=== PATIENT | female | born 1965 | race Caucasian/White ===

== ENCOUNTER 2020-02-26 09:07 | Day surgery (SDC) | payer MEDICARE, MEDICAID, SELFPAY ==
[2020-02-26] VITALS (7 sets, daily range): BP systolic 102–143; BP diastolic 40–70; PULSE 51–56; RESP 17–18; TEMP 36.1–36.2; O2SAT 95–97; BMI 29.1
--- NOTE | 2020-02-26 12:40 | HMH.ANESCL ---
[facility] Anesthesia Checklist - Patient Identification Patient Identification: Arm Band, Verbal (Name & ) - Structural Data Admitted From: Home Planned Operative Procedure/s: colon Consent for Planned Operative Procedure(s) Verified: Yes Verified Documents: History and Physical - NPO Status Verified Time NPO: 00:00 - Chart Verification Results Verified: CBC - Additional verifications Patient : No Anesthesia Reactions: No Hx Blood Transfusions: No Blood Transfusion Reaction: No Cephalosporin Allergy: No Previous Colonoscopy: No - Cardiovascular Assessment Heart Sounds: S1 & S2 Pulse Strength: Baseline Pulse Rhythm: Regular Peripheral Edema: No - Airway Assessment C-Spine Mobility Assessed: Yes TMJ Mobility Assessed: Yes Dentition: Edentulous - Neurological Assessment Level of Consciousness: Awake, Alert, Appropriate Hx Seizures: No Numbness or tingling in extremities: No - Anesthesia Plan Anesthesia Risk discussed: Yes Anesthesia Plan: Verified ASA Class: III Anesthesia Type: MAC [facility] History I have reviewed the patient's past medical history: Yes Medical History: Reports:: Anxiety, Depression, Gastroesophageal Reflux Disease(GERD), Hyperlipidemia, Hypertension, Seizures Denies:: Cancer, Diabetes Mellitus Type 1, Diabetes Mellitus Type 2, Internal Pacemaker, MRSA *Have you ever received a pneumonia vaccine?: Yes *Have you received a flu vaccine this season?: Yes Other Medical History: Reports: Thyroid Disease Anesthesia experience/problems:: none Other Surgeries: No: Pacemaker Amputation: No - *Social History Last grade of school completed: High school graduate Smoking Status: Current every day smoker Tobacco Type: cigarettes # Packs/Day (cigarettes): 1 Alcohol Intake: never Substance Use Type: other *Occupational Status:: disabled Housing: [facility] Household Members: caregiver, other *Travel in the last 8 weeks: None - Psychiatric History Pschychiatric History:: Reports:: Anxiety, Depression Family Hx:: Unable to obtain
--- NOTE | 2020-02-26 12:53 | SUR.OPER ---
IV IN LFA NOT PATENT, DISCONTINIUED IV. RESTARTED#22 IN R FA. IV PATENT, WITHOUT REDNESS, SWELLING.
--- NOTE | 2020-02-26 13:47 | HMH.SCOPE ---
- Procedure: Date: 02/26/20 Patient Date of :: 1965 Procedure Performed:: Colonoscopy with polypectomy Indications:: Bleeding hemorrhoids Performing Provider:: David Rucker MD Referring Provider:: . Sedation:: Monitored anesthesia care Procedure:: After informed consent was obtained the patient was taken to the endoscopy suite. Sedation ensued after the patient was transferred to the left lateral decubitus position. Pulse, blood pressure, and oxygen saturation were monitored throughout the procedure. Digital rectal exam revealed no significant abnormality. The colonoscope was placed in position. The entire colon was evaluated. The colonoscope was carefully removed and the patient was transferred to recovery in stable condition. Please see findings and specimens below for detail. Findings:: Large external hemorrhoidal tag/cushions with no thrombosis or bleeding Less prominent internal hemorrhoidal cushions Bowel preparation very poor Polyps (see specimens) Specimens:: Adjacent polyps at 25 cm (snare) Complex polyp at 7 cm (snare) Recommendations:: Timing of repeat colonoscopy is pending pathology but will likely be between 3-6 months secondary to limited bowel preparation and polyps. Ongoing discussion with regard to hemorrhoids treatment. Complications:: Poor bowel preparation Estimated blood obtained (mL): 1
== END 2020-02-26 14:30 | disposition home or self-care (01) ==
LOC: OUTP 09:09
PROVIDERS: PCP Internal Medicine Adolescent Medicine; Visit Provider Surgery
PROC: 0DJD8ZZ Inspection of Lower Intestinal Tract, Via Natural or Artificial Opening Endoscopic (ICD-10-PCS; CPT 45378; principal; 2020-02-26 10:30)
DX: K63.5 Polyp of colon (principal); Z12.11 Encounter for screening for malignant neoplasm of colon; K64.9 Unspecified hemorrhoids; K21.9 Gastro-esophageal reflux disease without esophagitis; I10 Essential (primary) hypertension; E78.5 Hyperlipidemia, unspecified; F41.9 Anxiety disorder, unspecified; F32.9 Major depressive disorder, single episode, unspecified; E07.9 Disorder of thyroid, unspecified; R56.9 Unspecified convulsions; Z72.0 Tobacco use; Z79.899 Other long term (current) drug therapy
CPT/HCPCS: 45385; 88305; J2704

== ENCOUNTER → 2020-04-15 21:07 | Outpatient (CLI) | payer MEDICARE, MEDICAID, SELFPAY ==
[2020-04-15 21:14] LABS: Microscopic, Urine URINE MICROSCOPIC (MICROSCOPIC)
[2020-04-15 21:24] LABS: Basophils % 0.3 % (0.1-2.0); Eosinophils % 0.1 % (0.1-12.0); Hematocrit 39.6 % (37.0-47.0); Lymphocytes # 0.4 K/mm3 (0.7-4.5); Lymphocytes % 4.3 % (10-50); Mean Corpuscular HGB Conc 32.7 g/dL (31.8-35.4); Mean Corpuscular Volume 94.7 fl (81-99); Mean Platelet Volume 7.6 fl (7.4-10.4); Monocytes # 0.1 K/mm3 (0.1-1.0); Monocytes % 1.2 % (1.7-9.3); Neutrophils # 8.1 K/mm3 (1.8-7.8); Neutrophils % 93.9 % (37.0-80.0); Platelet Count 262 K/mm3 (142-424); Red Blood Count 4.18 M/mm3 (4.20-5.40); Red Cell Distribution Width 13.4 % (11.5-17.5); White Blood Count 8.6 K/mm3 (4.8-10.8)
[2020-04-15 21:25] LABS: Chloride 110 mmol/L (98-107)
[2020-04-15 21:26] LABS: Potassium 4.1 mmoL/L (3.5-5.1); Sodium 144 mmol/L (136-145)
[2020-04-15 21:28] LABS: Alanine Aminotransferase 37 U/L (12-78); Alkaline Phosphatase 184 U/L (38-126); Amylase 38 U/L (30-110); Anion Gap 13.1 mEq/L (5-15); Appearance,Urine TURBID (Clear); Aspartate Amino Transferase 61 U/L (14-36); Bilirubin,Total 1.7 mg/dl (0.2-1.3); Blood Urea Nitrogen 21 mg/dl (7-17); Blood, Urine 3+ (Negative); Carbon Dioxide 25 mmol/L (22.0-30.0); Color,Urine BROWN (Yellow); Estimated Glomerular Filt Rate 46 ml/min (>60); GFR (African American) 56 ML/MIN (>60); Glucose,Urine (UA) Negative (Negative); Ketones,Urine TRACE (Negative); Leukocyte Esterase,Urine 2+ (Negative); Nitrate,Urine POSITIVE (Negative); PH,Urine 7.5 (5.0-8.5); Protein,Urine 2+ (Negative)
[2020-04-15 21:29] LABS: Albumin Level 3.9 g/dl (3.5-5.0); Bilirubin,Urine Negative (Negative); Calcium 9.7 mg/dl (8.4-10.2); Glucose 122 mg/dl (74-100); Lipase 29 U/L (23-300); Total Protein,Serum 7.9 g/dl (6.3-8.2)
[2020-04-15 21:30] LABS: MANUAL DIFFERENTIAL MANUAL DIFFERENTIAL (MANUAL DIFF)
[2020-04-15 22:11] LABS: Amorphous Sediment,Urine 2+ /lpf; Bacteria,Urine 4+ /lpf; Mucus,Urine 2+ /lpf
[2020-04-15 22:40] LABS: Lymphocytes % 8 % (10-50); Neutrophils % 92 % (42-76); Platelet Estimate Normal; Total Cells Counted 100
[2020-04-15 22:41] LABS: Stomatocytes 1+
== END ==
PROVIDERS: Visit Provider Nurse Practitioner Family
DX: R11.10 Vomiting, unspecified (principal)
CPT/HCPCS: 80053; 81001; 82150; 83690; 85007; 85025; 87086; 87088; 87186

== ENCOUNTER → 2020-06-21 20:46 | Outpatient (CLI) | payer MEDICARE, MEDICAID, SELFPAY ==
[2020-06-21 21:58] LABS: Coronavirus 19 IgG Antibody Positive (Negative); Coronavirus 19 IgM Antibody Negative (Negative)
== END ==
PROVIDERS: Visit Provider Nurse Practitioner Family
DX: Z01.818 Encounter for other preprocedural examination (principal); Z20.822 Contact with and (suspected) exposure to COVID-19; Z12.11 Encounter for screening for malignant neoplasm of colon; Z86.010 Personal history of colon polyps
CPT/HCPCS: 86328

== ENCOUNTER 2020-06-24 06:46 | Day surgery (SDC) | payer MEDICARE, MEDICAID, SELFPAY ==
[2020-06-24 07:12] VITALS: BP 99/64; PULSE 62; RESP 18; TEMP 36.4; O2SAT 100; BMI 28.5
[2020-06-24 08:51] VITALS: O2SAT 100
[2020-06-24 09:47] VITALS: BP 103/64; PULSE 79; RESP 18; TEMP 36.6; O2SAT 94
--- NOTE | 2020-06-24 09:48 | FL_ITS ---
PROCEDURE: FL BARIUM ENEMA W AIR CONTRAST CLINICAL INDICATION: severe sigmoid spasticity/lack of relaxation on colonoscopy COMPARISON: CT HDW CT HEAD W/ CONTRAST from 10/18/2015 FINDINGS: Store Detective image demonstrates staghorn calculus in the right kidney and multiple gallstones. There is a tubing noted coiled within the pelvis. This may represent known ventriculoperitoneal shunt tubing. Slightly limited study due to patient's mobility and inability to cooperate. Normal distention of the rectosigmoid colon is noted. Normal distention of the rectosigmoid, descending and distal transverse colon is noted. No evidence of focal lesions or focal filling defects are noted in the visualized colon. Under distension of the proximal transverse, ascending colon and cecum on introduction of air. No focal abnormalities are noted within the limitations of the study. Reflux of barium into the small bowel and appendix is noted. IMPRESSION: Slightly limited study due to patient's mobility and inability to cooperate during the examination. No evidence of focal narrowing or strictures noted within the limitations of the study. Dictated by: Judit Beaulieu 06/24/2020 16:52 Judit Beaulieu in OV 06/24/2020 16:52
--- NOTE | 2020-06-24 09:49 | HMH.SCOPE ---
- Procedure: Date: 06/24/20 Patient Date of :: 1965 Procedure Performed:: Colonoscopy Indications:: History of polyps Poor prep and severe spasticity/lack of relaxation noted on recent colonoscopy Performing Provider:: David Rucker MD Referring Provider:: . Sedation:: Monitored anesthesia care Procedure:: After informed consent was obtained the patient was taken to the endoscopy suite. Sedation ensued after the patient was transferred to the left lateral decubitus position. Pulse, blood pressure, and oxygen saturation were monitored throughout the procedure. Digital rectal exam revealed no significant abnormality. The colonoscope was placed in position. The entire colon was evaluated. The colonoscope was carefully removed and the patient was transferred to recovery in stable condition. Please see findings and specimens below for detail. Findings:: Moderate to poor bowel preparation (significant improvement versus prior evaluation) Severe sigmoid spasticity and lack of relaxation Large complex circumferential hemorrhoidal cushions with no active bleeding or current thrombosis Specimens:: None Recommendations:: Barium enema ordered secondary to severe spasticity and lack of relaxation of the sigmoid colon. If barium enema reveals no significant abnormality a repeat colonoscopy in 1-2 years is warranted secondary to ongoing limitations in visualization on 2 separate colonoscopies. Complications:: Limited visualization as stated above Estimated blood obtained (mL): 0
--- NOTE | 2020-06-24 09:50 | SUR.PHASEII ---
DR CHOWDARY WANTS PT TO HAVE A BARIUM ENEMA. RADIOLOGY TO CALL WITH TIME. PT KEEPS ALLING OUT HELP ME BUT WHEN GO IN ROOM, DENIES NEEDING ANYTHING. REPOSITIONED PT, VSS.
[2020-06-24 09:57] VITALS: BP 124/72; PULSE 79; RESP 18; O2SAT 94
[2020-06-24 10:08] VITALS: BP 106/61; PULSE 78; RESP 18; O2SAT 95
--- NOTE | 2020-06-24 10:33 | SUR.PHASEII ---
ANI FROM RADIOLOGY CALLED TO LET US KNOW PT IS REFUSING TO ALLOW THEM TO DO BARIUM ENEMA. UPDATED DR CHOWDARY.
[2020-06-24 12:00] VITALS: BP 137/65; PULSE 68; RESP 18; O2SAT 93
--- NOTE | 2020-06-24 12:00 | SUR.PHASEII ---
Report called to [place] nurse Yun.
--- NOTE | 2020-06-24 13:49 | HMH.ANESCL ---
[facility] Anesthesia Checklist - Patient Identification Patient Identification: Arm Band - Structural Data Admitted From: Home Planned Operative Procedure/s: Colonoscopy Consent for Planned Operative Procedure(s) Verified: Yes Verified Documents: Surgical Consent - NPO Status Verified Time NPO: 00:00 - Additional verifications Anesthesia Reactions: No Hx Blood Transfusions: No Blood Transfusion Reaction: No - Airway Assessment C-Spine Mobility Assessed: Yes TMJ Mobility Assessed: Yes Dentition: Poor Dentition - Neurological Assessment Level of Consciousness: Awake, Alert Hx Seizures: Yes (controlled with dilantin) - Anesthesia Plan Anesthesia Risk discussed: Yes Anesthesia Plan: Verified ASA Class: III Anesthesia Type: MAC [facility] History Medical History: Reports:: Anxiety, Depression, Gastroesophageal Reflux Disease(GERD), Hyperlipidemia, Hypertension Denies:: Cancer, Diabetes Mellitus Type 1, Diabetes Mellitus Type 2, Internal Pacemaker, MRSA, Seizures *Have you ever received a pneumonia vaccine?: Yes *Have you received a flu vaccine this season?: Yes Other Medical History: Reports: Thyroid Disease. Denies: Blood Transfusion Reaction Anesthesia experience/problems:: none Other Surgeries: Yes: Colonoscopy. No: Pacemaker Amputation: No - *Social History Smoking Status: Current every day smoker Tobacco Type: e-cigarettes # Packs/Day (cigarettes): 1 Alcohol Intake: never Substance Use Type: other *Occupational Status:: disabled Housing: assisted living facility Household Members: caregiver, other *Travel in the last 8 weeks: None - Psychiatric History Pschychiatric History:: Reports:: Anxiety, Depression Family Hx:: Unable to obtain
== END 2020-06-24 12:02 | disposition home or self-care (01) ==
LOC: OUTP 06:49
PROVIDERS: PCP Internal Medicine Adolescent Medicine; Visit Provider Surgery
PROC: 0DJD8ZZ Inspection of Lower Intestinal Tract, Via Natural or Artificial Opening Endoscopic (ICD-10-PCS; CPT 45378; principal; 2020-06-24 08:30)
DX: K58.9 Irritable bowel syndrome, unspecified (principal); K64.9 Unspecified hemorrhoids; Z86.010 Personal history of colon polyps; I10 Essential (primary) hypertension; E78.5 Hyperlipidemia, unspecified; F41.9 Anxiety disorder, unspecified; F32.9 Major depressive disorder, single episode, unspecified; K21.9 Gastro-esophageal reflux disease without esophagitis; E07.9 Disorder of thyroid, unspecified; Z79.899 Other long term (current) drug therapy; Z72.0 Tobacco use
CPT/HCPCS: 45378; 74280

== ENCOUNTER → 2020-12-29 20:36 | Outpatient (CLI) | payer MEDICARE, MEDICAID, SELFPAY ==
[2020-12-29 20:56] LABS: Microscopic, Urine URINE MICROSCOPIC (MICROSCOPIC)
[2020-12-29 21:06] LABS: Appearance,Urine CLOUDY (Clear); Bilirubin,Urine Negative (Negative); Blood, Urine 3+ (Negative); Color,Urine YELLOW (Yellow); Glucose,Urine (UA) Negative (Negative); Ketones,Urine Negative (Negative); Leukocyte Esterase,Urine 2+ (Negative); Nitrate,Urine Negative (Negative); PH,Urine 7.5 (5.0-8.5); Protein,Urine 2+ (Negative); Specific Gravity, Urine 1.025 (1.005-1.030); Urobilinogen,Urine 0.2 EU/dl (0.2)
[2020-12-29 21:27] LABS: Bacteria,Urine 4+ /lpf; RBC,Urine TNTC #/hpf (0-3); Squamous Epithelial Cell,Urine Occasional #/hpf (0-5); WBC,Urine TNTC #/hpf (0-3)
== END ==
LOC: LAB.DROPOF 20:39
PROVIDERS: PCP Internal Medicine Adolescent Medicine; Visit Provider Internal Medicine Adolescent Medicine
DX: N39.0 Urinary tract infection, site not specified (principal); B96.20 Unspecified Escherichia coli [E. coli] as the cause of diseases classified elsewhere; R30.9 Painful micturition, unspecified; R82.998 Other abnormal findings in urine
CPT/HCPCS: 81001; 87086; 87088; 87186

== ENCOUNTER → 2022-03-23 17:58 | Outpatient (CLI) | payer MEDICARE, MEDICAID, SELFPAY ==
[2022-03-23 18:16] LABS: Microscopic, Urine URINE MICROSCOPIC (MICROSCOPIC)
[2022-03-23 18:35] LABS: Appearance,Urine CLEAR (Clear); Blood, Urine 3+ (Negative); Color,Urine YELLOW (Yellow); Glucose,Urine (UA) Negative (Negative); Ketones,Urine Negative (Negative); Leukocyte Esterase,Urine 2+ (Negative); Nitrate,Urine Negative (Negative); Protein,Urine 2+ (Negative); Specific Gravity, Urine 1.025 (1.005-1.030); Urobilinogen,Urine 0.2 EU/dl (0.2)
[2022-03-23 18:44] LABS: Bilirubin,Urine 1+ (Negative)
[2022-03-23 19:33] LABS: Bacteria,Urine 1+ /lpf; WBC,Urine 20-50 #/hpf (0-3)
== END ==
PROVIDERS: PCP Nurse Practitioner Family; Visit Provider Nurse Practitioner Family
DX: R30.0 Dysuria (principal); B96.4 Proteus (mirabilis) (morganii) as the cause of diseases classified elsewhere; B96.29 Other Escherichia coli [E. coli] as the cause of diseases classified elsewhere
CPT/HCPCS: 81001; 87086; 87088; 87186

== ENCOUNTER → 2022-04-03 09:47 | Outpatient (CLI) | payer MEDICARE, MEDICAID, SELFPAY ==
[2022-04-03 10:44] LABS: Alanine Aminotransferase 16 U/L (12-78); Albumin Level 4.2 g/dl (3.5-5.0); Albumin/Globulin Ratio 1.2 (1.1-1.8); Alkaline Phosphatase 181 U/L (38-126); Anion Gap 11.3 mEq/L (5-15); Aspartate Amino Transferase 27 U/L (14-36); Bilirubin,Total 0.4 mg/dl (0.2-1.3); Blood Urea Nitrogen 16 mg/dl (7-17); Calcium 8.8 mg/dl (8.4-10.2); Carbon Dioxide 26 mmol/L (22.0-30.0); Chloride 111 mmol/L (98-107); Estimated Glomerular Filt Rate 64 ml/min (>60); GFR (African American) 78 ML/MIN (>60); Globulin 3.6 g/dL (1.3-3.2); Glucose 120 mg/dl (74-100); Phenytoin (Dilantin) 11.7 ug/ml (10-20); Potassium 4.3 mmoL/L (3.5-5.1); Sodium 144 mmol/L (136-145); Total Protein,Serum 7.8 g/dl (6.3-8.2)
== END ==
PROVIDERS: PCP Internal Medicine Adolescent Medicine; Visit Provider Internal Medicine Adolescent Medicine
DX: R41.82 Altered mental status, unspecified (principal); R56.9 Unspecified convulsions
CPT/HCPCS: 80053; 80185

== ENCOUNTER → 2022-10-12 12:38 | Outpatient (CLI) | payer MEDICARE, MEDICAID, SELFPAY ==
[2022-10-12 14:12] LABS: Alanine Aminotransferase 17 U/L (12-78); Albumin Level 3.9 g/dl (3.5-5.0); Albumin/Globulin Ratio 1.2 (1.1-1.8); Alkaline Phosphatase 164 U/L (38-126); Aspartate Amino Transferase 25 U/L (14-36); Bilirubin,Total 0.2 mg/dl (0.2-1.3); Blood Urea Nitrogen 18 mg/dl (7-17); Calcium 8.9 mg/dl (8.4-10.2); Carbon Dioxide 26 mmol/L (22.0-30.0); Chloride 111 mmol/L (98-107); Estimated Glomerular Filt Rate 74 ml/min (>60); GFR (African American) 89 ML/MIN (>60); Globulin 3.2 g/dL (1.3-3.2); Glucose 113 mg/dl (74-100); Sodium 144 mmol/L (136-145); Total Protein,Serum 7.1 g/dl (6.3-8.2)
[2022-10-12 16:26] LABS: Basophils % 0.6 % (0.1-2.0); Eosinophils # 0.3 K/mm3 (0.0-0.4); Hematocrit 39.5 % (37.0-47.0); Hemoglobin 12.3 g/dL (12.2-16.2); Lymphocytes # 2.1 K/mm3 (0.7-4.5); Lymphocytes % 36.4 % (10-50); Mean Corpuscular HGB Conc 31.1 g/dL (31.8-35.4); Mean Corpuscular Hemoglobin 29.9 pg (27.0-31.2); Mean Corpuscular Volume 95.9 fl (81-99); Mean Platelet Volume 7.9 fl (7.4-10.4); Monocytes # 0.4 K/mm3 (0.1-1.0); Monocytes % 6.5 % (1.7-9.3); Neutrophils # 2.9 K/mm3 (1.8-7.8); Neutrophils % 51.5 % (37.0-80.0); Platelet Count 376 K/mm3 (142-424); Red Blood Count 4.12 M/mm3 (4.20-5.40); White Blood Count 5.7 K/mm3 (4.8-10.8)
== END ==
PROVIDERS: PCP Internal Medicine Adolescent Medicine; Visit Provider Internal Medicine Adolescent Medicine
DX: G40.89 Other seizures (principal)
CPT/HCPCS: 80053; 80177; 80185; 85025

== ENCOUNTER 2022-10-17 06:35 | Day surgery (SDC) | payer MEDICARE, MEDICAID, SELFPAY ==
[2022-10-13 15:58] VITALS: BMI 26.2
[2022-10-17 06:56] VITALS: BP 140/77; PULSE 65; RESP 18; TEMP 36.7; O2SAT 97
--- NOTE | 2022-10-17 07:06 | HMH.SCOPE ---
Procedure: Date: 10/17/22 Patient Date of :: 1965 Procedure Performed:: Colonoscopy with polypectomy Indications:: History of colon polyps Note: Last colonoscopy in June 2020 was somewhat complicated by moderate to poor bowel preparation and spasticity/poor relaxation. A follow-up barium enema revealed no focal stricture. Large complex hemorrhoids were noted. Performing Provider:: David Rucker MD Referring Provider:: . Sedation:: Monitored anesthesia care Procedure:: After informed consent was obtained the patient was taken to the endoscopy suite. Sedation ensued after the patient was transferred to the left lateral decubitus position. Pulse, blood pressure, and oxygen saturation were monitored throughout the procedure. Digital rectal exam revealed no significant abnormality. The colonoscope was placed in position. The entire colon was evaluated. The colonoscope was carefully removed and the patient was transferred to recovery in stable condition. Please see findings and specimens below for detail. Findings:: Bowel preparation moderate to poor with large volume irrigation/suction utilized to somewhat improve visualization Unchanged large complex hemorrhoidal tissue (tags and cushions) Polyps (see specimens) Specimens:: Sessile polyp at 30 cm (cold snare) Sessile polyp at 15 cm (cold snare) Recommendations:: Timing of repeat colonoscopy is pending pathology will likely be around 3-5 years secondary to history of polyps Complications:: No immediate Estimated blood obtained (mL): 1 Colonoscopy Component Colonoscopy Component Was a colonoscopy performed during today's procedure?: Yes Recommended follow up colonoscopy of at least 10 years?: No If no, follow up colonoscopy recommended in ___ years?: 3-5 Reason for not recommending >/= 10 yr follow-up interval?: Bowel prep; history of polyps
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
[2022-10-17 07:49] VITALS: O2SAT 97
[2022-10-17 08:32] VITALS: BP 103/66; PULSE 70; RESP 18; TEMP 36.4; O2SAT 97
[2022-10-17 08:42] VITALS: BP 98/62; PULSE 78; RESP 18; O2SAT 98
[2022-10-17 08:52] VITALS: BP 129/78; PULSE 73; RESP 18; O2SAT 97
== END 2022-10-17 08:52 | disposition home or self-care (01) ==
PROVIDERS: PCP Internal Medicine Adolescent Medicine; Visit Provider Surgery
PROC: 0DJD8ZZ Inspection of Lower Intestinal Tract, Via Natural or Artificial Opening Endoscopic (ICD-10-PCS; principal; 2022-10-17 07:30)
DX: Z12.11 Encounter for screening for malignant neoplasm of colon (principal); Z86.010 Personal history of colon polyps; K64.8 Other hemorrhoids; D12.5 Benign neoplasm of sigmoid colon
CPT/HCPCS: 45385; 88305

== ENCOUNTER → 2023-02-23 12:40 | Outpatient (CLI) | payer MEDICARE, MEDICAID, SELFPAY ==
[2023-02-23 12:58] LABS: Chloride 111 mmol/L (98-107); Potassium 4.2 mmoL/L (3.5-5.1); Sodium 145 mmol/L (136-145)
[2023-02-23 13:01] LABS: Anion Gap 9.2 mEq/L (5-15); Blood Urea Nitrogen 24 mg/dl (7-17); Carbon Dioxide 29 mmol/L (22.0-30.0); Estimated Glomerular Filt Rate 73 ml/min (>60); GFR (African American) 89 ML/MIN (>60)
[2023-02-23 13:02] LABS: Calcium 8.9 mg/dl (8.4-10.2); Glucose 88 mg/dl (74-100)
== END ==
PROVIDERS: PCP Nurse Practitioner Family; Visit Provider Nurse Practitioner Family
DX: I10 Essential (primary) hypertension (principal)
CPT/HCPCS: 80048

== ENCOUNTER → 2023-03-15 10:08 | Outpatient (CLI) | payer MEDICARE, MEDICAID, SELFPAY ==
[2023-03-15 11:45] LABS: Phenytoin (Dilantin) 28.2 ug/ml (10-20)
== END ==
LOC: LAB.DROPOF 10:10
PROVIDERS: PCP Nurse Practitioner Family; Visit Provider Nurse Practitioner Family
DX: R56.9 Unspecified convulsions (principal); Z51.81 Encounter for therapeutic drug level monitoring
CPT/HCPCS: 80185

== ENCOUNTER 2023-08-01 17:20 | Outpatient (CLI) | payer MEDICARE, MEDICAID, SELFPAY | END 2023-08-01 23:59 | disposition home or self-care (01) | LOC: LAB.DROPOF 17:22 | PROVIDERS: PCP Nurse Practitioner Family; Visit Provider Nurse Practitioner Family | DX: Z51.81 Encounter for therapeutic drug level monitoring (principal) ==

== ENCOUNTER 2023-11-14 19:12 | Outpatient (CLI) | payer MEDICARE, MEDICAID, SELFPAY ==
[2023-11-14 20:07] LABS: Microscopic, Urine URINE MICROSCOPIC (MICROSCOPIC)
[2023-11-14 20:09] LABS: Appearance,Urine CLEAR (Clear); Bilirubin,Urine Negative (Negative); Blood, Urine 3+ (Negative); Color,Urine YELLOW (Yellow); Glucose,Urine (UA) Negative (Negative); Ketones,Urine Negative (Negative); Leukocyte Esterase,Urine 2+ (Negative); Nitrate,Urine Negative (Negative); PH,Urine 7.5 (5.0-8.5); Protein,Urine 2+ (Negative); Specific Gravity, Urine 1.025 (1.005-1.030); Urobilinogen,Urine 0.2 EU/dl (0.2)
[2023-11-14 20:48] LABS: Bacteria,Urine 4+ /lpf; RBC,Urine TNTC #/hpf (0-3); WBC,Urine TNTC #/hpf (0-3)
== END 2023-11-14 23:59 | disposition home or self-care (01) ==
LOC: LAB.DROPOF 19:13
PROVIDERS: PCP Internal Medicine Adolescent Medicine; Visit Provider Internal Medicine Adolescent Medicine
DX: G47.51 Confusional arousals (principal); R41.82 Altered mental status, unspecified
CPT/HCPCS: 81001; 87086; 87088; 87186

== ENCOUNTER 2023-11-19 14:20 | Outpatient (CLI) | payer MEDICARE, MEDICAID, SELFPAY ==
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
== END 2023-11-19 23:59 | disposition home or self-care (01) ==
LOC: RAD 14:21
PROVIDERS: PCP Nurse Practitioner Family; Visit Provider Nurse Practitioner Family
DX: G40.909 Epilepsy, unspecified, not intractable, without status epilepticus (principal); R46.89 Other symptoms and signs involving appearance and behavior; S06.9X9S Unspecified intracranial injury with loss of consciousness of unspecified duration, sequela
CPT/HCPCS: 70450

== ENCOUNTER 2024-01-28 14:22 | Outpatient (CLI) | payer MEDICARE, MEDICAID, SELFPAY ==
[2024-01-28 14:39] LABS: Microscopic, Urine URINE MICROSCOPIC (MICROSCOPIC)
[2024-01-28 14:57] LABS: Appearance,Urine CLOUDY (Clear); Bilirubin,Urine Negative (Negative); Blood, Urine 3+ (Negative); Color,Urine YELLOW (Yellow); Glucose,Urine (UA) Negative (Negative); Ketones,Urine TRACE (Negative); Leukocyte Esterase,Urine 2+ (Negative); Nitrate,Urine Negative (Negative); PH,Urine 7.5 (5.0-8.5); Protein,Urine 2+ (Negative); Specific Gravity, Urine 1.025 (1.005-1.030); Urobilinogen,Urine 0.2 EU/dl (0.2)
[2024-01-28 15:16] LABS: Bacteria,Urine 4+ /lpf; Mucus,Urine 1+ /lpf; WBC,Urine 20-50 #/hpf (0-3)
== END 2024-01-28 23:59 | disposition home or self-care (01) ==
LOC: LAB.DROPOF 14:23
PROVIDERS: PCP Internal Medicine Adolescent Medicine; Visit Provider Internal Medicine Adolescent Medicine
DX: G81.11 Spastic hemiplegia affecting right dominant side (principal); N39.0 Urinary tract infection, site not specified
CPT/HCPCS: 81001; 87086; 87088; 87186

== ENCOUNTER 2024-09-03 11:06 | Outpatient (CLI) | payer MEDICARE, MEDICAID, SELFPAY ==
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
--- OUTSIDE RECORDS SUMMARY | 2024-09-03 11:09 | XMS_ITS | Clinical Summary ---
Author Organization Healthcare Address [address] [place] [address] Care Team Providers Care Surgical Services Coordinator Name Role Phone Unavailable Primary Care Provider Unavailabl e Family History Medical History Relation Name Comments Lung cancer Mother Lung cancer Other Relation Name Status Comments Mother Other Social History Tobacco Use Types Packs/Day Years Used Date Smoking Tobacco: Passive Smo ke Exposure - Never Smoker Comments Unknown Sex and Gender Information Value Date Recorded Sex Assigned at Not on file Legal Sex Female 7:38 PM EDT Gender Identity Not on file Sexual Orientation Not on file Last Filed Vital Signs Vital Sign Reading Time Taken Comments Blood Pressure 119/90 08/22/2018 1:35 PM EDT Pulse 72 08/22/2018 1:35 PM EDT Temperature - - Respiratory Rate - - Oxygen Saturation - - Inhaled Oxygen Concentration - - Weight 68 kg (150 lb) 08/08/2018 2:02 PM EDT Height 162.6 cm (5' 4 ) 08/08/2018 2:02 PM EDT Body Mass Index 25.75 08/08/2018 2:02 PM EDT Plan of Treatment Health Maintenance Due Date Last Done Comments [facility]-Depression Screening 1965 [facility]-/Child/Adol SDOH Screenings 1965 [facility]- SDOH Screenings 11/12/1981 [facility]-Adult SDOH Screenings 11/12/1981 [facility]-DTaP,Tdap,and Td Vaccine s (1 - Tdap) 11/12/1982 [facility]-Pap Smear 01/29/2000 01/28/1997, 05/01/1996 [facility]-Cervical Cancer Screening 01/28/2002 [facility]-HPV/Cotest 01/28/2002 01/28/1997, 05/01/1996 CT Colonography 11/12/2008 Colonoscopy 11/12/2008 FIT-DNA 11/12/2008 FIT 11/12/2008 FOBT 11/12/2008 Sigmoidoscopy 11/12/2008 [facility]-Colorectal Cancer Screening 11/12/2008 [facility]-Pneumococcal Vaccine: 50 + Years (1 of 1 - PCV) 11/12/2013 [facility]-Zoster Vaccines (1 of 2) 11/12/2013 [id number] Vaccine (1 - 2023- season) 2023 [facility]-Influenza Vaccine (Seaso n Ended) 2024 [facility]-RSV Vaccine: 60+ Years o r (1 - 1-dose 75+ series) 11/12/2038 HPV Vaccines Aged Out No longer eligi ble based on patient's age to complete this topic [facility]-HIB Vaccines Aged Out No longer e ligible based on patient's age to complete this topic [facility]-Hepatitis A Vaccines Aged Out No longer eligible based on patient's age to complete this topic [facility]-IPV Vaccines Aged Out No longer e ligible based on patient's age to complete this topic UKY-Rotavirus Vaccines Aged Out No lo nger eligible based on patient's age to complete this topic Procedures Procedure Name Priority Date/Time Associated Diagnosis Comments CYTO DATA CONVERSION Routine 01/28/1997 12:00 AM EST from Last 3 Months or Most Recently Relevant to Health Maintenance Results * Cytology (01/28/1997 12:00 AM EST) 01/28/1997 01/29/1997 Narrative SUNQUEST - 02/02/1997 12:00 AM EST [facility] MR #: [id number] [facility] [place] [address] 1965 (Age: 31) FW Collect Date: 01/28/1997 00:00 Receipt Date: 01/29/1997 00:00 Page 1 DEPARTMENT OF PATHOLOGY AND LABORATORY MEDICINE CYTOPATHOLOGY REPORT Email: [email or web address] [email or web address] * Converted Case * This report may not match the original report format ATTENDING MD/Practitioner: Jin Potter MD Service: Location: OTHER MD(S): Daniel Scruggs MD Reported: 02/02/1997 00:00 Collected: 01/28/1997 00:00 DIAGNOSIS CEREBROSPINAL FLUID: NO EVIDENCE OF MALIGNANCY. CELLULAR SPECIMEN WITH MONONUCLEAR CELLS AND HISTIOCYTES. Electronically Signed Out KIA Hall (ASCP) Blaire Howe MD PROCEDURES/ADDENDA GROSS DESCRIPTION: 1/4 cc of yellow fluid. CLINICAL INFORMATION: SPECIMEN DESCRIPTION: A: CEREBROSPINAL FLUID, CSF ICD: F: {Not Entered} SNOMED CODES: 1; [id number] A resident has participated in this service. A pathologist has performed and is responsible for the reported pathologic evaluation. Historical Provider MD LAB PATHOLOGY ORDERABLES Final Result SUNQUEST from Last 3 Months or Most Recently Relevant to Health Maintenance Additional Health Concerns Infection Onset Date Last Indicated Pseudomonas - MDRO Comment:Positive abscess culture for MDR Pseudomonas aeuginosa. 06/07/2018 08/17/2020
[2024-09-03 11:53] LABS: Basophils % 0.5 % (0.1-2.0); Eosinophils # 0.2 Kmm3 (0.0-0.4); Eosinophils % 2.3 % (0.1-12.0); Hematocrit 33.3 % (37.0-47.0); Hemoglobin 10.6 g/dL (12.2-16.2); Immature Granulocytes # 0.03 10^3uL; Immature Granulocytes % 0.4 %; Lymphocytes # 2.1 K/mm3 (0.7-4.5); Lymphocytes % 28.7 % (10-50); Mean Corpuscular HGB Conc 31.8 g/dL (31.8-35.4); Mean Corpuscular Hemoglobin 29.9 pg (27.0-31.2); Mean Corpuscular Volume 93.8 fl (81-99); Mean Platelet Volume 10.1 fl (7.4-10.4); Monocytes # 0.6 K/mm3 (0.1-1.0); Monocytes % 8.2 % (1.7-9.3); Neutrophils # 4.4 K/mm3 (1.8-7.8); Neutrophils % 59.9 % (37.0-80.0); Nucleated Red Blood Cells # 0 10^3/uL; Nucleated Red Blood Cells % 0 %; Platelet Count 282 K/mm3 (142-424); Red Blood Count 3.55 M/mm3 (4.20-5.40); Red Cell Distribution Width 15.1 % (11.5-17.5); White Blood Count 7.4 K/mm3 (4.8-10.8)
[2024-09-03 12:05] LABS: Chloride 107 mmol/L (98-107); Sodium 141 mmol/L (136-145)
[2024-09-03 12:06] LABS: Potassium 4.3 mmoL/L (3.5-5.1)
[2024-09-03 12:08] LABS: Blood Urea Nitrogen 27 mg/dl (7-17); Estimated Glomerular Filt Rate 46 ml/min (>60); GFR (African American) 55 ML/MIN (>60)
[2024-09-03 12:09] LABS: Anion Gap 7.3 mEq/L (5-15); Calcium 9.6 mg/dl (8.4-10.2); Carbon Dioxide 31 mmol/L (22.0-30.0); Glucose 85 mg/dl (74-100)
--- NOTE | 2024-09-03 14:21 | ECG_ITS ---
APPROVED REPORT Exam: Resting ECG HR:52 bpm ECG Measurements Heart Rate 52 AXES WY 172 P 50 QRSd 105 QRS 40 QT 419 T 45 QTc 398 Conclusion SINUS BRADYCARDIA BORDERLINE ECG UNCONFIRMED REPORT Electronically signed by : Cory Collins MD 09/04/2024 08:43:33
== END 2024-09-03 23:59 | disposition home or self-care (01) ==
LOC: PREOP 11:07
PROVIDERS: PCP Internal Medicine Adolescent Medicine; Visit Provider Surgery
DX: Z01.810 Encounter for preprocedural cardiovascular examination (principal); K64.8 Other hemorrhoids; R00.1 Bradycardia, unspecified; R94.31 Abnormal electrocardiogram [ECG] [EKG]
CPT/HCPCS: 80048; 85025; 93005

== ENCOUNTER 2024-09-11 06:30 | Day surgery (SDC) | payer MEDICARE, MEDICAID, SELFPAY ==
[2024-09-03 14:34] VITALS: BMI 24.3
[2024-09-11] VITALS (9 sets, daily range): BP systolic 92–123; BP diastolic 53–62; PULSE 63–75; RESP 14–18; TEMP 36.1–36.9; O2SAT 92–97
[2024-09-11] MEDS: 0.9 % SODIUM CHLORIDE 1000ML 1,000 ML 25 ML IV (07:34)
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
[2024-09-11] MEDS: CEFAZOLIN SODIUM 2 GM in 0.9 % SODIUM CHLORIDE 100 ML IV (09:28)
[2024-09-11] MEDS: METRONIDAZ/SOD CHL 500 MG/100 ML PIGGYBACK 100 MG IV (09:30)
[2024-09-11] MEDS: LIDOCAINE 1% 20ML MDV 20 ML (09:48)
--- NOTE | 2024-09-11 10:34 | EXP.OP.NOTE ---
Date of procedure: 09/11/24 Pre-op Diagnosis:: Bleeding hemorrhoids Post-op Diagnosis:: Same Procedure performed:: Examination under anesthesia Hemorrhoidectomy Surgeon:: David Rucker MD Anesthesia: GETA and local Estimated blood loss (mL): 15 Operative findings:: Complex large circumferential internal and external hemorrhoids Posterior cushion/tag excised Right lateral cushion/tag excised Operative note:: After informed consent was obtained the patient was taken to the operating room and placed in the supine position. General anesthesia was induced and she was transferred to a modified lithotomy position. Large complex circumferential internal and external hemorrhoids noted. The largest hemorrhoidal cushion along the posterior margin was carefully elevated. The cushion with concomitant external tag was excised with electrocautery. Mucosa was reapproximated with running Vicryl suture. A right lateral hemorrhoidal cushion with associated external tag was treated in a similar manner. No obvious stenosis was noted on digital exam. The anal canal was carefully irrigated and the entire region was infiltrated with 1% lidocaine. Proctosol-coated Gelfoam was placed in the anal canal. The patient's anesthetic agents were reversed and she was transferred to recovery in stable condition after extubation. Condition: stable Disposition: PACU Specimens:: Posterior and right lateral external/internal hemorrhoids Complications:: No immediate
--- NOTE | 2024-09-11 10:43 | EXP.ANES.I ---
[facility] Anesthesia Record Part I Anesthesia Record I Intake, IV Amount: 700 Hydration: Adequate Estimated blood loss (mL): 0 Urine output (mL): 0 Blood Products used (#): none Blood Pressure: 111/60 SaO2: 93 Pulse Rate: 67 Airway Patency: Patent Respiratory Rate: 14 Temperature: 97.0 F Patient is:: Oral/Nasal airway and Somnolent Stable to PACU at:: 10:40
--- NOTE | 2024-09-12 09:14 | EXP.ANES.II ---
[facility] Anesthesia Record Part II Anesthesia Record Part II Discharge Time: 11:31 Destination: Surgical Day Care (OP Surgery) PACU nurse assessment reviewed?: Yes Patient Condition:: Good Anesthesia Complications:: None Swallowing reflex intact?: Yes Airway Patency: Patent Cyanosis?: No Blood Pressure: 106/54 SaO2: 94 Respiratory Rate: 17 Pulse Rate: 70 Temperature: 97.4 F Mental Status: Alert & Oriented Pain level:: 0 Nausea and/or vomitting:: None Intake, IV Amount: 0 Hydration: Adequate
[2024-09-12 09:15] VITALS: BP 106/54; PULSE 70; RESP 17; TEMP 36.3; O2SAT 94
== END 2024-09-11 11:39 | disposition home or self-care (01) ==
PROVIDERS: PCP Internal Medicine Adolescent Medicine; Visit Provider Surgery
PROC: (CPT 46230; principal; 2024-09-11 08:30)
DX: K64.4 Residual hemorrhoidal skin tags (principal); K64.8 Other hemorrhoids
CPT/HCPCS: 46230; 96374; J0690; J1100; J1596; J1836; J2003; J2250; J2405; J2704; J3010; J7030

== ENCOUNTER 2024-09-20 19:24 | Outpatient (CLI) | payer MEDICARE, MEDICAID, SELFPAY ==
--- OUTSIDE RECORDS SUMMARY | 2024-09-20 19:29 | XMS_ITS | Clinical Summary ---
Author [facility] Address [address] [place] [address] Phone Care Team Providers Care Traveling Nurse Name Role Phone Unavailable Primary Care Provider [...] patient's age to complete this topic Insurance [facility] [address] [id number] [place] [address] MEDICAID [place] [facility] [address] [id number] MEDICARE [place] PART A AND B MEDICAID [place] Advance Directives For more information, please contact: [phone] * Full Code (Latest Code Status on File) Date Activated Date Inactivated Comments 09/14/2014 1:40 PM 09/14/2014 6:39 PM
--- OUTSIDE RECORDS SUMMARY | 2024-09-20 19:29 | XMS_ITS | Clinical Summary ---
Author Organization Healthcare Address [address] [place] [address] Care Team Providers Care Metal Welder Name Role Phone Unavailable Primary Care Provider [...] 11/12/2013 [facility]-Zoster Vaccines (1 of 2) 11/12/2013 [id number] Vaccine (1 - 2023- season) 2023 [facility]-Influenza [...] Narrative SUNQUEST - 02/02/1997 12:00 AM EST [facility] MR #: [id number] [facility] [place] [address] 1965 (Age: 31) FW Collect Date: 01/28/1997 00:00 Receipt Date: 01/29/1997 00:00 Page 1 DEPARTMENT OF PATHOLOGY AND LABORATORY MEDICINE CYTOPATHOLOGY REPORT Email: [phone] * Converted Case * This report may [...] ICD: F: {Not Entered} SNOMED CODES: 1; [id number] A resident has participated in this service. [...]
[2024-09-20 20:00] LABS: Microscopic, Urine URINE MICROSCOPIC (MICROSCOPIC)
[2024-09-20 20:05] LABS: Basophils # 0.1 K/mm3 (0-0.2); Basophils % 0.9 % (0.1-2.0); Eosinophils # 0.4 Kmm3 (0.0-0.4); Eosinophils % 4.8 % (0.1-12.0); Hematocrit 31.5 % (37.0-47.0); Hemoglobin 9.7 g/dL (12.2-16.2); Immature Granulocytes # 0.02 10^3uL; Immature Granulocytes % 0.2 %; Lymphocytes # 2.4 K/mm3 (0.7-4.5); Lymphocytes % 29.5 % (10-50); Mean Corpuscular HGB Conc 30.8 g/dL (31.8-35.4); Mean Corpuscular Hemoglobin 29.9 pg (27.0-31.2); Mean Corpuscular Volume 97.2 fl (81-99); Mean Platelet Volume 10.2 fl (7.4-10.4); Monocytes % 12.3 % (1.7-9.3); Neutrophils # 4.3 K/mm3 (1.8-7.8); Neutrophils % 52.3 % (37.0-80.0); Nucleated Red Blood Cells # 0 10^3/uL; Nucleated Red Blood Cells % 0 %; Platelet Count 403 K/mm3 (142-424); Red Blood Count 3.24 M/mm3 (4.20-5.40); Red Cell Distribution Width 16.1 % (11.5-17.5); Red Cell Distribution Width-SD 56.8 fL; White Blood Count 8.2 K/mm3 (4.8-10.8)
[2024-09-20 20:09] LABS: Appearance,Urine CLOUDY (Clear); Bilirubin,Urine Negative (Negative); Blood, Urine 2+ (Negative); Color,Urine YELLOW (Yellow); Glucose,Urine (UA) Negative (Negative); Ketones,Urine TRACE (Negative); Leukocyte Esterase,Urine 2+ (Negative); Nitrate,Urine Negative (Negative); PH,Urine 8.5 (5.0-8.5); Protein,Urine 2+ (Negative); Urobilinogen,Urine 0.2 EU/dl (0.2)
[2024-09-20 20:18] LABS: Alanine Aminotransferase 9 U/L (12-78); Albumin Level 3.8 g/dl (3.5-5.0); Albumin/Globulin Ratio 0.9 (1.1-1.8); Alkaline Phosphatase 81 U/L (38-126); Anion Gap 14.9 mEq/L (5-15); Aspartate Amino Transferase 21 U/L (14-36); Bilirubin,Total 0.3 mg/dl (0.2-1.3); Blood Urea Nitrogen 22 mg/dl (7-17); Calcium 9.6 mg/dl (8.4-10.2); Carbon Dioxide 30 mmol/L (22.0-30.0); Chloride 107 mmol/L (98-107); Estimated Glomerular Filt Rate 42 ml/min (>60); GFR (African American) 51 ML/MIN (>60); Globulin 4.4 g/dL (1.3-3.2); Glucose 101 mg/dl (74-100); Potassium 4.9 mmoL/L (3.5-5.1); Sodium 147 mmol/L (136-145); Total Protein,Serum 8.2 g/dl (6.3-8.2)
[2024-09-20 20:23] LABS: Valproic Acid, (Depakene) 41.1 ug/ml (50-100)
[2024-09-20 20:31] LABS: Bacteria,Urine 4+ /lpf; WBC,Urine TNTC #/hpf (0-3)
== END 2024-09-20 23:59 | disposition home or self-care (01) ==
LOC: LAB.DROPOF 19:27
PROVIDERS: Internal Medicine Adolescent Medicine; PCP Nurse Practitioner Family; Visit Provider Nurse Practitioner Family
DX: K21.9 Gastro-esophageal reflux disease without esophagitis (principal); N39.0 Urinary tract infection, site not specified; F30.8 Other manic episodes; F29 Unspecified psychosis not due to a substance or known physiological condition; G40.909 Epilepsy, unspecified, not intractable, without status epilepticus
CPT/HCPCS: 80053; 80164; 81001; 85025; 87086; 87088; 87186

== ENCOUNTER 2024-09-20 19:30 | Outpatient (CLI) | payer MEDICARE, MEDICAID, SELFPAY | END 2024-09-20 23:59 | disposition home or self-care (01) | LOC: LAB.DROPOF 19:32 | PROVIDERS: PCP Nurse Practitioner Family; Visit Provider Nurse Practitioner Family | DX: G40.909 Epilepsy, unspecified, not intractable, without status epilepticus (principal); F29 Unspecified psychosis not due to a substance or known physiological condition; N39.0 Urinary tract infection, site not specified; F30.8 Other manic episodes ==

== ENCOUNTER 2024-10-11 00:32 | Emergency (ER) | payer MEDICARE, MEDICAID, SELFPAY ==
[2024-10-11] VITALS (8 sets, daily range): BP systolic 115–134; BP diastolic 55–73; PULSE 48–58; RESP 16; TEMP 36.6–36.9; O2SAT 94–98; BMI 32.8
--- NOTE | 2024-10-11 01:21 | XR_ITS ---
PROCEDURE INFORMATION: Exam: XR Chest Exam date and time: 10/11/2024 1:54 AM Age: 58 years old Clinical indication: Other: AMS; Additional info: Altered mental status TECHNIQUE: Imaging protocol: Radiologic exam of the chest. Views: 1 view. COMPARISON: No relevant prior studies available. FINDINGS: Tubes, catheters and devices: A catheter or wire overlies the right root of neck projected over the expected course of the superior vena cava. Please correlate clinically. Lungs: There is no focal pulmonary consolidation. Pleural spaces: Unremarkable. No pleural effusion. No pneumothorax. Heart/Mediastinum: Unremarkable. No cardiomegaly. Bones/joints: Unremarkable. IMPRESSION: No acute cardiopulmonary disease.
--- NOTE | 2024-10-11 01:23 | CT_ITS ---
PROCEDURE INFORMATION: Exam: CT Head Without Contrast Exam date and time: 10/11/2024 2:02 AM Age: 58 years old Clinical indication: Altered mental status/memory loss TECHNIQUE: Imaging protocol: Computed tomography of the head without contrast. Radiation optimization: All CT scans at this facility use at least one of these dose optimization techniques: automated exposure control; mA and/or kV adjustment per patient size (includes targeted exams where dose is matched to clinical indication); or iterative reconstruction. COMPARISON: CT HEAD/BRAIN WO CON 11/19/2023 2:24 PM FINDINGS: Tubes, catheters and devices: A right frontal ventricular catheter is unchanged in position. Brain: There is no significant change in the configuration of the brain post craniectomy. There is notable encephalomalacia in the left hemisphere with relative sparing of the posterior parietal, temporal and occipital lobes. There is notable postsurgical dural calcification Cerebral ventricles: There is atrophic dilatation of the left lateral ventricle. Paranasal sinuses: Mucosal thickening is noted within the left frontal sinus and right mid ethmoid air cells. Mastoid air cells: Visualized mastoid air cells are well aerated. Bones: Postsurgical posttraumatic fragmentation of the anterior skull base is noted more on the left. Soft tissues: Unremarkable. IMPRESSION: No significant change from the prior study.
[2024-10-11 01:54] LABS: Hematocrit 35.1 % (37.0-47.0); Hemoglobin 11.0 g/dL (12.2-16.2); Immature Granulocytes % 0.2 %; Mean Corpuscular HGB Conc 31.3 g/dL (31.8-35.4); Mean Corpuscular Hemoglobin 29.6 pg (27.0-31.2); Mean Corpuscular Volume 94.6 fl (81-99); Nucleated Red Blood Cells % 0 %; Platelet Count 348 K/mm3 (142-424); Red Blood Count 3.71 M/mm3 (4.20-5.40); Red Cell Distribution Width-SD 53.2 fL; White Blood Count 6.3 K/mm3 (4.8-10.8)
[2024-10-11 01:56] LABS: Lactate Venous 1.0 mmol/L (0.4-2.0); VBG HCO3 24.1 mmol/L (23-30); VBG PCO2 41.9 mmol/L (35-51); VBG PH 7.38 mmol/L (7.31-7.41); VBG PO2 51.4 mmol/L (28-40)
--- OUTSIDE RECORDS SUMMARY | 2024-10-11 01:59 | XMS_ITS | Clinical Summary ---
Author Organization [facility] Address [address] [address] Phone Care Team Providers Care Bill Collector Name Role Phone Unavailable Primary Care Provider [...] Zoster (1 of 2) 11/12/2013 COVID-19 Vaccine (1 - 2023-2 5 season) 2023 Influenza Vaccine (#1) 2024 Hepatitis B Vaccine Aged Out No longe r eligible based on patient's age to complete this topic Meningococcal B Vaccine Aged Out No l onger eligible based on patient's age to complete this topic Insurance [facility] [address] [id number] [place] [address] MEDICAID [place] [facility] [address] [id number] MEDICARE [place] PART A AND B MEDICAID [place] Advance Directives For more information, please contact: [phone] * Full Code (Latest Code Status on File) Date Activated Date Inactivated Comments 09/14/2014 1:40 PM 09/14/2014 6:39 PM
--- OUTSIDE RECORDS SUMMARY | 2024-10-11 01:59 | XMS_ITS | Clinical Summary ---
Author Organization [facility] Address [address] [place] [address] Care Team Providers Care Cancer Genetics Assistant Name Role Phone Unavailable Primary Care Provider Unavailabl e Social History Tobacco Use Types Packs/Day Years Used Date Smoking Tobacco: Never Assessed Abuse Screen Answer Date Recorded Unsafe at Home or Work/School Not on file Feels Threatened by Someone? Not on file 01/2023 Does Anyone Keep You from Co ntacting Others or Doint Things Outside the Home? Not on file 01/03/2023 Physical Sign of Abuse Present Not on file 1 Housing Stability Answer Date Recorded Current Living Arrangements Not on file 12/24 Potentially Unsafe Housing Conditions Not on eyad e 01/03/2023 Family and Community Support Answer Tien e Recorded Help with Day-to-Day Activities Not on file 01/03/2023 Lonely or Isolated Not on file 01/03/2023 Employment Answer Date Recorded Do you want help finding or keeping work or a marlene b? Not on file 01/03/2023 Disabilities Answer Date Recorded Concentrating, Remembering, or Making Decisions Difficulty Not on file 01/03/2023 Doing Errands Independently Difficulty Not on fi le 01/03/2023 Education Answer Date Recorded Help with school or training? Not on file Preferred Language Not on file 01/03/2023 Comments Unknown Sex and Gender Information Value Date Recorded Sex Assigned at Not on file Legal Sex Female 12:02 PM EDT Gender Identity Not on file Sexual Orientation Not on file Last Filed Vital Signs Vital Sign Reading Time Taken Comments Blood Pressure 101/66 06/04/2013 11:04 AM EDT Pulse - - Temperature - - Respiratory Rate - - Oxygen Saturation - - Inhaled Oxygen Concentration - - Weight 73.5 kg (161 lb 15.9 oz) 014 11:04 AM EDT Height 165.1 cm (5' 5 ) 06/04/2013 11:0 4 AM EDT Body Mass Index 26.96 06/04/2013 11:04 AM EDT Plan of Treatment Health Maintenance Due Date Last Done Comments ANNUAL PHYSICAL 1965 Annual Gynecologic Pelvic and Breast Exam 1965 HEPATITIS C SCREENING 1965 TDAP/TD VACCINES (1 - Tdap) 11/12/1982 MAMMOGRAM 2003 COLOGUARD 11/12/2008 COLON CANCER SCREENING 5 YEAR SIGMOIDOSCOPY 11/12/2008 COLONOSCOPY 11/12/2008 COLORECTAL CANCER SCREENING 11/12/2008 CT COLONOGRAPHY 11/12/2008 FECAL OCCULT BLOOD TEST 11/12/2008 FIT Testing (1 year) 11/12/2008 Pneumococcal Vaccine 50+ (1 of 1 - PCV) 11/12/2013 ZOSTER VACCINE (1 of 2) 11/12/2013 COVID-19 Vaccine (1 - 2023- season) 2023 INFLUENZA VACCINE 12/24/2024
--- OUTSIDE RECORDS SUMMARY | 2024-10-11 01:59 | XMS_ITS ---
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 LEFT LOWER LIMB 019 04/27/[id number] completed 27 FURUNCLE OF LIMB, UNSPECIFIED 019 06/05/[address] completed 28 DRY EYE SYNDROME OF BILATERAL LACRIMAL GLANDS 018 05/28/[address] completed 29 CELLULITIS OF RIGHT LOWER LIMB 017 12/04/[id number] completed 30 CELLULITIS, UNSPECIFIED 017 12/04/[address] completed 31 HYPERLIPIDEMIA, UNSPECIFIED 64656594 SNOMED CT active 32 OTHER ANXIETY DISORDERS 016 04/27/[address] completed 33 CHRONIC SINUSITIS, UNSPECIFIED [address] active 34 ENCOUNTER FOR PLANNED POSTPROCEDURAL WOUND CLOSURE 016 04/27/[address] completed 35 ENCOUNTER FOR SURGICAL AFTERCARE FOLLOWING SURGERY ON THE SENSE ORGANS 016 04/27/[address] completed 36 ENCOUNTER FOR SURGICAL AFTERCARE FOLLOWING SURGERY ON THE SKIN AND SUBCUTANEOUS TISSUE 016 04/27/[address] completed 37 UNSPECIFIED DISORDER OF NOSE AND NASAL SINUSES 016 05/28/[address] completed 38 UNSPECIFIED OPEN WOUND OF SCALP, INITIAL ENCOUNTER 016 06/18/[address] completed 39 RESISTANCE TO MULTIPLE ANTIMICROBIAL DRUGS 016 04/27/[id number] completed 40 ANXIETY DISORDER, UNSPECIFIED [address] active 41 BLINDNESS, ONE EYE, UNSPECIFIED EYE 015 12/05/[address] completed 42 DISORDER OF CARTILAGE, UNSPECIFIED 015 04/27/[address] completed 43 HYPOTHYROIDISM, UNSPECIFIED [address] active 44 DIFFICULTY IN WALKING, NOT ELSEWHERE CLASSIFIED 015 05/28/[address] completed 45 UNSPECIFIED OPEN WOUND OF UNSPECIFIED PART OF HEAD, SEQUELA 015 04/27/[address] completed 46 AGE-RELATED NUCLEAR CATARACT, UNSPECIFIED EYE 008 12/05/[address] completed 47 OTHER CEREBROVASCULAR DISEASE 008 04/27/[address] completed 48 OTHER MANIC EPISODES [address] active 49 OTHER PARALYTIC STRABISMUS, UNSPECIFIED EYE 008 12/12/[address] completed 50 SIMPLE FEBRILE CONVULSIONS 008 02/03/[address] completed 51 UNSPECIFIED PSYCHOSIS NOT DUE TO A SUBSTANCE OR KNOWN PHYSIOLOGICAL CONDITION [address] active Reason for Referral No Reasons for Referral Entered Diagnostic Results Result Code Code System Date Test Result Interpretation Reference Range Status Notes [id number] LOINC 09/26 BASIC MET PNL INCL GFR (BMP) / CBC W/DIFF Completed Result for: OLGA MUELLER ( 1965 , F) 2345-7 LOINC 09/26 GLUCOSE Value: 72 Units: mg/dL Normal Final GLUCOSE, FASTING 65-99 mg/dL GLUCOSE, NON-FASTI NG 65-125 mg/dL 2951-2 LOINC 09/26 SODIUM Value: 142 Units: mEq/L Normal 136-145 Final 2823-3 [facility] 09/26 POTASSIUM Value: 4.4 Units: mEq/L Normal 3.5-5.3 Final 2074-0 [facility] 09/26 CHLORIDE Value: 103 Units: mEq/L Normal 96-110 Final 2027-11 [facility] 09/26 CARBON DIOXIDE (CO2) Value: 27 Units: mEq/L Normal 21-33 Final 3094-0 [facility] 09/26 BUN (UREA NITROGEN) Value: 24 Units: mg/dL Normal 7-25 Final 2160-0 [facility] 09/26 CREATININE Value: 1.4 Units: mg/dL High 0.6-1.3 Final 3097- [facility] 09/26 BUN/CREATININ E RATIO Value: 17 Units: Normal 6-25 Final 48647-0 [facility] 09/26 GFR- Value: 46 Units: mL/min/ {1.73_m 2} Low >60 Final 15304-0 [facility] 09/26 [id number] AN LATVIAN Value: 38 Units: mL/min/ {1.73_m 2} Low >60 Final Stage of CKD eGFR (mL/min/1 .73 square meters) Stage 1 >/= 90 or > 90 Stage 2 60 - 89 Stage 3 30 - 59 Stage 4 15 - 29 Stage 5 </= 14 or < 15 GFR is reliable for adults 17 to 69 years with stable kidney function. 03203-2 [facility] 09/26 CALCIUM Value: 8.7 Units: mg/dL Normal 8.4-10.2 Final 6690-2 [facility] 09/26 WBC Value: 6.7 Units: K/cmm Normal 4.5-10.8 Final 789-8 [facility] 09/26 RBC Value: 3.38 Units: 10*3/mm 3 Low 3.90-5.40 Final 718-7 [facility] 09/26 HEMOGLOBIN Value: 10.4 Units: g/dL Low 12.0-16.0 Final 4544-3 [facility] 09/26 HEMATOCRIT Value: 32.4 Units: % Low 36.0-48.0 Final 44555-8 [facility] 09/26 MCV Value: 95.7 Units: fL Normal 80.0-100.0 Final 785-6 [facility] 09/26 MCH Value: 30.6 Units: pg Normal 26.0-35.0 Final 786-4 [facility] 09/26 MCHC Value: 32.0 Units: g/dL Normal 31.0-36.5 Final 788-0 [facility] 09/26 RDW Value: 17.4 Units: % High 11.0-16.0 Final 777-3 [facility] 09/26 PLATELET Value: 503 Units: K/cmm High 150-450 Final 94471-6 [facility] 09/26 MPV Value: 8.3 Units: fL Normal 6.5-12.0 Final 123-9999 9-9 [facility] 09/26 ANISOCYTOSIS Value: 1+ Units: Abnormal NEGATIVE Final 770-8 [facility] 09/26 NEUTROPHILS Value: 34.8 Units: % Low 40.0-80.0 Final 736-9 [facility] 09/26 LYMPHS Value: 48.5 Units: % High 13.0-48.0 Final 84309-3 [facility] 09/26 MONOCYTES Value: 11.1 Units: % Normal 2.0-12.0 Final 713-8 [facility] 09/26 EOS Value: 4.7 Units: % Normal 0.0-8.0 Final 706-2 [facility] 09/26 BASO Value: 0.9 Units: % Normal 0.0-2.0 Final 751-8 [facility] 09/26 NEUTS (ABSOLUTE) Value: 2.30 Units: K/uL Normal 1.50-7.60 Final 731-0 [facility] 09/26 LYMPHS (ABSOLUTE) Value: 3.30 Units: K/uL Normal 0.90-5.50 Final 742-7 [facility] 09/26 MONOCYTES (ABSOLUTE) Value: 0.70 Units: K/uL Normal 0.15-1.10 Final 711-2 [facility] 09/26 EOS (ABSOLUTE) Value: 0.30 Units: K/uL Normal 0.00-0.80 Final 704-7 [facility] 09/26 BASO (ABSOLUTE) Value: 0.10 Units: K/uL Normal 0.00-0.30 Final 771-6 LOINC 09/26 NUCLEATED RBC Value: 0.2 Units: {RBC}/1 00{WBC} Normal <1.0 Final Test Code Code System Name Date BASIC MET PNL INCL GFR (BMP) 09/26/2024 CBC W/DIFF 09/26/2024 Social History Social History Observation Description Start Date End Date Code Code System Current Smoking Status Tobacco smoking consumption unknown [id number] SNOMED CT Sex Assigned At Female 1965 99329-3 [facility] Gender Identity Vital Signs Code Code System Vitals Name Values and Units Timing Information 9279-1 [facility] Respiratory Rate Value=18.0 Units=/m in 10/10/2024 8462-4 [facility] Blood Pressure-Diastolic Value=76 Un its=mmHg 10/10/2024 8480-6 [facility] Blood Pressure-Systolic Ymbbo=939 Un its=mmHg 10/10/2024 8310-5 [facility] Body Temperature Value=97.3 Units= F 10/10/2024 8867-4 [facility] Heart rate Value=68.0 Units=/min 78861-7 [facility] O2 % BldC Oximetry Value=97.0 Units= % 10/10/2024 35549-4 [facility] Pain Level Value=0.0 10/08/2024 96386-0 [facility] Weight Aknmo=839.5 Units=Lbs 04/2024 2339-0 [facility] Blood Sugar Msdmj=800.0 Units=mg/dL 02/28/2024 8302-2 [facility] Height Value=66.5 Units=Inches 02/23/2016
--- OUTSIDE RECORDS SUMMARY | 2024-10-11 01:59 | XMS_ITS | Clinical Summary ---
Author Organization Healthcare Address [address] [place] [address] Care Team Providers Care [employer] Name Role Phone Unavailable Primary Care Provider [...] 11/12/2013 [facility]-Zoster Vaccines (1 of 2) 11/12/2013 [id number] Vaccine (1 - 2023- season) 2023 [facility]-Influenza Vaccine (#1) 2024 [facility]-RSV Vaccine: 60+ Years o r [...] Narrative SUNQUEST - 02/02/1997 12:00 AM EST [facility] MR #: [id number] [facility] [place] [address] 1965 (Age: 31) FW Collect Date: 01/28/1997 00:00 Receipt Date: 01/29/1997 00:00 Page 1 DEPARTMENT OF PATHOLOGY AND LABORATORY MEDICINE CYTOPATHOLOGY REPORT Email: [email or web address] [phone] * Converted Case * This report may [...] ICD: F: {Not Entered} SNOMED CODES: 1; [id number] A resident has participated in this service. [...]
[2024-10-11 02:00] LABS: Albumin Level 4.2 g/dl (3.5-5.0); Chloride 106 mmol/L (98-107); Potassium 4.1 mmoL/L (3.5-5.1); Sodium 142 mmol/L (136-145)
[2024-10-11 02:02] LABS: Alanine Aminotransferase 10 U/L (12-78); Alkaline Phosphatase 93 U/L (38-126); Aspartate Amino Transferase 22 U/L (14-36); Bilirubin,Total 0.7 mg/dl (0.2-1.3); Blood Urea Nitrogen 17 mg/dl (7-17); Creatinine Clearance Estimated 72 mL/min (50-200); Creatinine,Serum 1.10 mg/dl (0.52-1.04); Estimated Glomerular Filt Rate 51 ml/min (>60); GFR (African American) 61 ML/MIN (>60)
[2024-10-11 02:03] LABS: Albumin/Globulin Ratio 0.9 (1.1-1.8); Anion Gap 11.1 mEq/L (5-15); Calcium 9.5 mg/dl (8.4-10.2); Carbon Dioxide 29 mmol/L (22.0-30.0); Globulin 4.6 g/dL (1.3-3.2); Glucose 97 mg/dl (74-100); Magnesium 2.0 mg/dl (1.6-2.3); Total Protein,Serum 8.8 g/dl (6.3-8.2)
--- NOTE | 2024-10-11 02:15 | ECG_ITS ---
APPROVED REPORT Exam: Resting ECG HR:52 bpm ECG Measurements Heart Rate 52 AXES TX 206 P 60 QRSd 83 QRS 56 QT 378 T 53 QTc 359 Conclusion SINUS BRADYCARDIA BORDERLINE ECG No STEMI Electronically signed by : SOWMYA VARGAS, 10/11/2024 06:12:21
[2024-10-11 02:16] LABS: Troponin I < 0.01 ng/ml (0.00-0.034)
[2024-10-11] MEDS: LACTATED RINGERS 1000ML 1,000 ML 999 ML IV (02:16)
[2024-10-11 02:34] LABS: Thyroid Stimulating Hormone 4.43 uIU/mL (0.465-4.68)
[2024-10-11 02:35] LABS: Ammonia 20 umol/L (9-30)
[2024-10-11 02:39] LABS: Free T4 (Free Thyroxine) 1.20 ng/dl (0.78-2.19)
[2024-10-11 03:00] LABS: INR 1.03 (0.9-1.1); Prothrombin Time 11.4 seconds (10.1-12.5)
[2024-10-11 03:22] LABS: Microscopic, Urine URINE MICROSCOPIC (MICROSCOPIC)
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
[2024-10-11 04:06] LABS: Color,Urine Yellow (Yellow)
[2024-10-11 04:07] LABS: Protein,Urine 2+ (Negative)
[2024-10-11 04:07] LABS: Barbiturates Screen,Urine Negative ng/ml (<200); Benzodiazepines Screen,Urine Negative ng/ml (<200)
[2024-10-11 04:08] LABS: Amphetamine/Metha Screen,Urine Negative ng/ml (<1000)
[2024-10-11 04:08] LABS: Bilirubin,Urine Negative (Negative); Glucose,Urine (UA) Negative (Negative); Ketones,Urine Negative (Negative)
[2024-10-11 04:09] LABS: Leukocyte Esterase,Urine 3+ (Negative); PH,Urine 8.0 (5.0-8.5); Specific Gravity, Urine 1.010 (1.005-1.030); Urobilinogen,Urine 0.2 EU/dl (0.2)
[2024-10-11 04:09] LABS: Methadone Screen,Urine Negative ng/ml (<300)
[2024-10-11 04:10] LABS: Opiate Screen,Urine Negative ng/ml (<300)
[2024-10-11 04:11] LABS: Phencyclidine Screen,Urine Negative ng/ml (<25)
[2024-10-11] MEDS: CEFTRIAXONE 1 GM 1 GM in 0.9 % SODIUM CHLORIDE 50 ML IV (04:31)
[2024-10-11 04:40] LABS: Bacteria,Urine Trace /lpf; RBC,Urine TNTC #/hpf (0-3); Squamous Epithelial Cell,Urine TNTC #/hpf (0-5); WBC,Urine TNTC #/hpf (0-3)
--- NOTE | 2024-10-11 04:41 | PC.NURSE ---
EMS called for transport
--- NOTE | 2024-10-14 09:26 | PC.NURSE ---
Urine culture results reviewed by Dr. Johnston. No new orders received at this time.
--- NOTE | 2024-10-16 09:58 | PC.NURSE ---
I discussed the pts final urine culture result with . No changed needed in the pts treatment plan.
== END 2024-10-11 05:10 ==
PROVIDERS: Emergency Provider Emergency Medicine
DX: N39.0 Urinary tract infection, site not specified (principal); R45.1 Restlessness and agitation; Z87.820 Personal history of traumatic brain injury
CPT/HCPCS: 70450; 71045; 80053; 80307; 80320; 81001; 82140; 82803; 83735; 84439; 84443; 84484; 85025; 85610; 87086; 87088; 87186; 93005; 96361; 96365; 99285; J0696; J7120

== ENCOUNTER 2024-10-28 20:16 | Outpatient (CLI) | payer MEDICARE, MEDICAID, SELFPAY ==
--- OUTSIDE RECORDS SUMMARY | 2024-10-28 20:22 | XMS_ITS | Clinical Summary ---
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
--- OUTSIDE RECORDS SUMMARY | 2024-10-28 20:22 | XMS_ITS | Clinical Summary ---
Author Organization [facility] Address [address] [place] [address] Phone Care Team Providers Care Scientific Editor Name Role Phone Unavailable Primary Care Provider [...] patient's age to complete this topic Insurance [facility] [address] [id number] [place] [address] MEDICAID [place] [facility] [address] [id number] MEDICARE [place] PART [place] B MEDICAID [place] Advance Directives For more information, please contact: [phone] * Full Code (Latest Code Status on File) Date Activated Date Inactivated Comments 09/14/2014 1:40 PM 09/14/2014 6:39 PM
--- OUTSIDE RECORDS SUMMARY | 2024-10-28 20:22 | XMS_ITS | Clinical Summary ---
Author Organization Healthcare Address [address] [place] [address] Care Team Providers Care Tariff Clerk Name Role Phone Unavailable Primary Care Provider [...] 11/12/2013 UKY-Zoster Vaccines (1 of 2) 11/12/2013 [id number] Vaccine (1 - 2023- season) 2023 UKY-Influenza [...] Narrative SUNQUEST - 02/02/1997 12:00 AM EST [facility] MR #: [id number] [facility] [place] [address] 1965 (Age: 31) FW Collect Date: 01/28/1997 00:00 Receipt Date: 01/29/1997 00:00 Page 1 DEPARTMENT OF PATHOLOGY AND LABORATORY MEDICINE CYTOPATHOLOGY REPORT Email: [email or web address] * Converted Case * This report may [...] ICD: F: {Not Entered} SNOMED CODES: 1; [id number] A resident has participated in this service. [...]
[2024-10-28 20:37] LABS: Microscopic, Urine URINE MICROSCOPIC (MICROSCOPIC)
[2024-10-28 21:45] LABS: Bilirubin,Urine Negative (Negative); Color,Urine YELLOW (Yellow); Glucose,Urine (UA) Negative (Negative); Ketones,Urine Negative (Negative); Leukocyte Esterase,Urine TRACE (Negative); PH,Urine 6.5 (5.0-8.5); Protein,Urine 2+ (Negative); Specific Gravity, Urine 1.010 (1.005-1.030); Urobilinogen,Urine 0.2 EU/dl (0.2)
[2024-10-28 23:00] LABS: Squamous Epithelial Cell,Urine Occasional #/hpf (0-5)
[2024-10-28 23:01] LABS: Bacteria,Urine 2+ /lpf
== END 2024-10-28 23:59 | disposition home or self-care (01) ==
LOC: LAB.DROPOF 20:20
PROVIDERS: PCP Nurse Practitioner Family; Visit Provider Nurse Practitioner Family
DX: N39.0 Urinary tract infection, site not specified (principal); F30.8 Other manic episodes
CPT/HCPCS: 81001; 87086; 87088

== ENCOUNTER 2024-10-29 14:15 | Outpatient (CLI) | payer MEDICARE, MEDICAID, SELFPAY ==
--- OUTSIDE RECORDS SUMMARY | 2024-10-29 14:20 | XMS_ITS | Clinical Summary ---
Author Organization [facility] Address [address] [place] [address] Phone Care Team Providers Care Hebrew Professor Name Role Phone Unavailable Primary Care Provider [...] patient's age to complete this topic Insurance [employer] [address] [id number] [place] [address] MEDICAID [place] [employer] [address] [id number] MEDICARE [place] PART A [place] B MEDICAID [place] Advance Directives For more information, please contact: [phone] * Full Code (Latest Code Status on File) Date Activated Date Inactivated Comments 09/14/2014 1:40 PM 09/14/2014 6:39 PM
--- OUTSIDE RECORDS SUMMARY | 2024-10-29 14:20 | XMS_ITS | Clinical Summary ---
Author Organization Healthcare Address [address] [place] [address] Care Team Providers Care Care Transition Coordinator Name Role Phone Unavailable Primary Care [...] 11/12/2013 UKY-Zoster Vaccines (1 of 2) 11/12/2013 [id number] Vaccine (1 - 2023- season) 2023 UKY-Influenza [...] Narrative SUNQUEST - 02/02/1997 12:00 AM EST [facility] MR #: [id number] [facility] [place] [address] 1965 (Age: 31) FW Collect Date: 01/28/1997 00:00 Receipt Date: 01/29/1997 00:00 Page 1 DEPARTMENT OF PATHOLOGY AND LABORATORY MEDICINE CYTOPATHOLOGY REPORT Email: [email or web address] * Converted Case * This report may [...] ICD: F: {Not Entered} SNOMED CODES: 1; [id number] A resident has participated in this service. [...]
--- OUTSIDE RECORDS SUMMARY | 2024-10-29 14:20 | XMS_ITS | Clinical Summary ---
Author Organization [facility] ystem Address [address] [place] [address] Care Team Providers Care Sales Service Coordinator Name Role Phone Unavailable Primary Care [...]
[2024-10-29 14:32] LABS: Hematocrit 33.9 % (37.0-47.0); Hemoglobin 10.4 g/dL (12.2-16.2); Immature Granulocytes % 0.2 %; Mean Corpuscular HGB Conc 30.7 g/dL (31.8-35.4); Mean Corpuscular Hemoglobin 29.5 pg (27.0-31.2); Mean Corpuscular Volume 96.0 fl (81-99); Nucleated Red Blood Cells % 0 %; Platelet Count 331 K/mm3 (142-424); Red Blood Count 3.53 M/mm3 (4.20-5.40); Red Cell Distribution Width-SD 52.2 fL; White Blood Count 6.0 K/mm3 (4.8-10.8)
[2024-10-29 19:08] LABS: Alanine Aminotransferase 11 U/L (12-78); Albumin Level 3.7 g/dl (3.5-5.0); Albumin/Globulin Ratio 1.0 (1.1-1.8); Alkaline Phosphatase 85 U/L (38-126); Anion Gap 12.5 mEq/L (5-15); Aspartate Amino Transferase 21 U/L (14-36); Bilirubin,Total 0.2 mg/dl (0.2-1.3); Blood Urea Nitrogen 18 mg/dl (7-17); Calcium 9.3 mg/dl (8.4-10.2); Carbon Dioxide 25 mmol/L (22.0-30.0); Chloride 111 mmol/L (98-107); Creatinine,Serum 1.20 mg/dl (0.52-1.04); Estimated Glomerular Filt Rate 46 ml/min (>60); GFR (African American) 55 ML/MIN (>60); Globulin 3.6 g/dL (1.3-3.2); Glucose 169 mg/dl (74-100); Potassium 4.5 mmoL/L (3.5-5.1); Sodium 144 mmol/L (136-145); Total Protein,Serum 7.3 g/dl (6.3-8.2)
[2024-10-29 19:17] LABS: Valproic Acid, (Depakene) 57.9 ug/ml (50-100)
[2024-10-29 19:39] LABS: Thyroid Stimulating Hormone 2.11 uIU/mL (0.465-4.68)
== END 2024-10-29 23:59 | disposition home or self-care (01) ==
LOC: LAB 14:17
PROVIDERS: PCP Internal Medicine Adolescent Medicine; Visit Provider Nurse Practitioner Family
DX: E46 Unspecified protein-calorie malnutrition (principal)
CPT/HCPCS: 80053; 80164; 84443; 85025

== ENCOUNTER 2024-12-12 21:09 | Inpatient (IN) | payer MEDICARE, MEDICAID, SELFPAY ==
[2024-12-12] VITALS (8 sets, daily range): BP systolic 102–112; BP diastolic 52–75; PULSE 56–60; RESP 9–16; TEMP 33.8–34; O2SAT 92–96; BMI 25.0
--- NOTE | 2024-12-12 21:09 | CT_ITS ---
PROCEDURE INFORMATION: Exam: CTA Abdomen and Pelvis With Contrast Exam date and time: 12/12/2024 10:37 PM Age: 59 years old Clinical indication: Other: Bright red blood per rectum TECHNIQUE: Imaging protocol: Computed tomographic angiography of the abdomen and pelvis with contrast. Exam focused on the arteries. 3D rendering (Not supervised by radiologist): MIP and/or 3D reconstructed images were created by the technologist. Radiation optimization: All CT scans at this facility use at least one of these dose optimization techniques: automated exposure control; mA and/or kV adjustment per patient size (includes targeted exams where dose is matched to clinical indication); or iterative reconstruction. 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 Lungs: Mild scarring and atelectasis in the lower lungs. Mild centrilobular emphysema. Heart: Cardiomegaly. Coronary arteries: Coronary artery calcifications. Aorta: No aortic aneurysm. No aortic dissection. Celiac and mesenteric arteries: No occlusion or significant stenosis. Renal arteries: No occlusion or significant stenosis. Right iliac arteries: No occlusion or significant stenosis. Left iliac arteries: No occlusion or significant stenosis. Liver: Mild fatty infiltration of the liver along the falciform ligament. Gallbladder and biliary ducts: Cholelithiasis. Pancreas: Unremarkable. No mass. No ductal dilation. Spleen: Unremarkable. No splenomegaly. Adrenal glands: Unremarkable. No mass. Kidneys and ureters: Right ureteral wall thickening and enhancement. Low attenuation renal lesions measuring up to 6.6 cm in diameter are incompletely characterized, but are likely cysts. No followup imaging is warranted. Right renal staghorn calculus with dilated right renal calices and enlarged kidney. Stomach and bowel: Bowel wall thickening of the low rectum with prominent perirectal blood vessels. Appendix: Unremarkable appendix. Intraperitoneal space: Trace free fluid in the pelvis. Lymph nodes: Right perirenal and para-aortic lymph nodes with enhancement near the right kidney could be reactive. Urinary bladder: Urinary bladder wall thickening. Reproductive: Unremarkable as visualized. Bones/joints: No acute fracture. Soft tissues: There is a healed anterior abdominal wall incision. Other findings: Stigmata of old granulomatous disease. IMPRESSION: 1. There is no extravasated contrast in the lumen of bowel to identify the source of GI bleed. 2. Bowel wall thickening of the low rectum with prominent perirectal blood vessels. There is no active contrast extravasation, however, the appearance could correlate with infection/inflammation or malignancy. Consider direct visualization. 3. Urinary bladder wall thickening. This appearance is suspicious for infection. 4. Right ureteral wall thickening and enhancement. Please exclude ureteritis/ascending urinary tract infection. 5. Right renal staghorn calculus with dilated right renal calices and enlarged kidney. This has the appearance of xanthogranulomatous pyelonephritis.. Consider outpatient surgical evaluation. 6. Right perirenal and para-aortic lymph nodes with enhancement near the right kidney could be reactive. Attention to this on follow-up studies as metastatic disease could produce a similar appearance. 7. Cholelithiasis.
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
--- OUTSIDE RECORDS SUMMARY | 2024-12-12 21:20 | XMS_ITS | Clinical Summary ---
[facility] Organization [facility] Address [address] [place] [address] Phone Care Team Providers Care Ornamental Machine Operator Name Role Phone Unavailable Primary Care Provider [...] COVID-19 Vaccine (1 - 2023-2 5 season) 2024 Influenza Vaccine (#1) 2024 Hepatitis B Vaccine Aged Out No longe r eligible based on patient's age to complete this topic Meningococcal B Vaccine Aged Out No l onger eligible based on patient's age to complete this topic Insurance [facility] [address] [id number] [place] [address] MEDICAID [place] [facility] [address] [id number] MEDICARE [place] PART A [place] B MEDICAID [place] Advance Directives For more information, please contact: [phone] * Full Code (Latest Code Status on File) Date Activated Date Inactivated Comments 09/14/2014 1:40 PM 09/14/2014 6:39 PM
--- OUTSIDE RECORDS SUMMARY | 2024-12-12 21:20 | XMS_ITS | Clinical Summary ---
Author Organization [facility] Address [address] [place] [address] Care Team Providers Care Assisted Living Care Manager Name Role Phone Unavailable Primary Care Provider [...] 11/12/2013 ZOSTER VACCINE (1 of 2) 11/12/2013 INFLUENZA VACCINE 10/24/2024
--- OUTSIDE RECORDS SUMMARY | 2024-12-12 21:20 | XMS_ITS | Clinical Summary ---
Author Organization Healthcare Address [address] [place] [address] Care Team Providers Care Home Health Manager Name Role Phone Unavailable Primary Care [...] 11/12/2013 [facility]Y-Zoster Vaccines (1 of 2) 11/12/2013 [id number] Vaccine (1 - season) 2024 [facility]-Influenza Vaccine (#1) 2024 [facility]Y-RSV Vaccine: 60+ [...] Narrative SUNQUEST - 02/02/1997 12:00 AM EST [facility] MR #: [id number] [facility] [place] [address] 1965 (Age: 31) FW Collect Date: 01/28/1997 00:00 Receipt Date: 01/29/1997 00:00 Page 1 DEPARTMENT OF PATHOLOGY AND LABORATORY MEDICINE CYTOPATHOLOGY REPORT Email: [email or web address] * Converted Case * This report may [...] ICD: F: {Not Entered} SNOMED CODES: 1; [id number] A resident has participated in this service. A pathologist has performed and is responsible for the reported pathologic evaluation. Historical Provider LAB PATHOLOGY ORDERABLES Fin al Result SUNQUEST from Last 3 Months or Most Recently Relevant to Health Maintenance Additional Health Concerns Infection Onset Date Last Indicated Pseudomonas - MDRO Comment:Positive abscess culture for MDR Pseudomonas aeuginosa. 06/07/2018 08/17/2020
[2024-12-12 21:33] LABS: Hematocrit 37.3 % (37.0-47.0); Hemoglobin 11.6 g/dL (12.2-16.2); Immature Granulocytes % 0.3 %; Mean Corpuscular HGB Conc 31.1 g/dL (31.8-35.4); Mean Corpuscular Hemoglobin 30.0 pg (27.0-31.2); Mean Corpuscular Volume 96.4 fl (81-99); Nucleated Red Blood Cells % 0.5 %; Platelet Count 118 K/mm3 (142-424); Red Blood Count 3.87 M/mm3 (4.20-5.40); Red Cell Distribution Width-SD 60.0 fL; White Blood Count 7.6 K/mm3 (4.8-10.8)
--- NOTE | 2024-12-12 21:39 | PC.NURSE ---
Dr Johnston at bedside, pt placed in gown, hemacult taken by Dr Johnston, unable to get oral or auxiliary temp nor IV, will in/out cath for UA, US IV and get rectal temp
[2024-12-12 22:11] LABS: Albumin Level 3.7 g/dl (3.5-5.0); Chloride 110 mmol/L (98-107)
[2024-12-12 22:12] LABS: Potassium 4.5 mmoL/L (3.5-5.1); Sodium 149 mmol/L (136-145)
[2024-12-12 22:14] LABS: Alanine Aminotransferase 15 U/L (12-78); Albumin/Globulin Ratio 0.8 (1.1-1.8); Alkaline Phosphatase 73 U/L (38-126); Anion Gap 13.5 mEq/L (5-15); Aspartate Amino Transferase 35 U/L (14-36); Bilirubin,Total 0.2 mg/dl (0.2-1.3); Blood Urea Nitrogen 37 mg/dl (7-17); Carbon Dioxide 30 mmol/L (22.0-30.0); Creatinine Clearance Estimated 42 mL/min (50-200); Creatinine,Serum 1.50 mg/dl (0.52-1.04); Estimated Glomerular Filt Rate 35 ml/min (>60); GFR (African American) 43 ML/MIN (>60); Globulin 4.6 g/dL (1.3-3.2); Total Protein,Serum 8.3 g/dl (6.3-8.2)
[2024-12-12 22:15] LABS: Calcium 10.1 mg/dl (8.4-10.2); Glucose 100 mg/dl (74-100); Lipase 66 U/L (23-300); Magnesium 2.1 mg/dl (1.6-2.3)
--- NOTE | 2024-12-12 22:20 | PC.NURSE ---
Dr Walter placed a #20 US IV in pt left AC. Attempted to in/out cath with Stepan RN at bedside, pt urine so thick it will not come out. Rectal temp taken, pt is currently 93.5. Dr Johnston aware, pt being moved to room #2, Temp Haynes placed, urine is very purulent and malodor. Bear Hugged placed on pt, she is 92.3 at this time. Second blood culture being drawn, Sepsis work up started.
[2024-12-12 22:28] LABS: Microscopic, Urine URINE MICROSCOPIC (MICROSCOPIC)
[2024-12-12 22:32] LABS: Bilirubin,Urine Negative (Negative); Color,Urine YELLOW (Yellow); Glucose,Urine (UA) Negative (Negative); Ketones,Urine TRACE (Negative); Leukocyte Esterase,Urine 2+ (Negative); PH,Urine 8.0 (5.0-8.5); Protein,Urine 3+ (Negative); Specific Gravity, Urine 1.025 (1.005-1.030); Urobilinogen,Urine 0.2 EU/dl (0.2)
[2024-12-12] MEDS: 0.9 % SODIUM CHLORIDE 50 ML VIAL IV (22:35)
[2024-12-12] MEDS: SODIUM CHLORIDE 0.9% 10ML SYR (RAD ONLY) 10 ML IV (22:35)
[2024-12-12] MEDS: IOPAMIDOL-370 (76%);100ML BOTTLE 80 ML IV (22:36)
--- NOTE | 2024-12-12 22:54 | PC.NURSE ---
2nd blood culture collected at [id number]
[2024-12-12 22:56] LABS: Bacteria,Urine 4+ /lpf; RBC,Urine 20-50 #/hpf (0-3); WBC,Urine TNTC #/hpf (0-3)
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
[2024-12-13] VITALS (10 sets, daily range): BP systolic 94–127; BP diastolic 52–71; PULSE 55–76; RESP 10–16; TEMP 34.2–36.8; O2SAT 91–98; BMI 25.0
[2024-12-13] MEDS: LACTATED RINGERS 1000ML 1,000 ML 999 ML IV (00:11)
[2024-12-13 00:44] LABS: Occult Blood,Stool Positive (Negative)
[2024-12-13] MEDS: 0.9 % SODIUM CHLORIDE 1000ML 1,000 ML 50 ML IV (02:14)
[2024-12-13] MEDS: VANCOMYCIN CONSULT REQUEST 1 EACH NOTAPPLIC (04:29)
[2024-12-13] MEDS: PIPERACILLIN/TAZO 3.375 GM in 0.9 % SODIUM CHLORIDE 50 ML IV ×4 (04:35→21:49)
--- NOTE | 2024-12-13 04:48 | PC.NURSE ---
patient was admitted this shift, patient has slept since arriving to floor. upon admission, patient temp was low at 93.7, marley hugger was placed on patient and room temp was turned up. most recent temperature on patient was 98.4 per temp sensing shoemaker and marley hugger was turned off. patient is arrousable to name but very lethargic and drifts back to sleep quickly. fluids infusing per mar. seizure pads in place, bed alarm on and functioning. call button in reach.
[2024-12-13] MEDS: VANCOMYCIN/WATER FOR INJ (PEG) 1.25 GM/250 ML PIGGYBACK IV (05:56)
[2024-12-13 07:21] LABS: Hematocrit 31.0 % (37.0-47.0); Immature Granulocytes % 0.4 %; Mean Corpuscular HGB Conc 31.3 g/dL (31.8-35.4); Mean Corpuscular Hemoglobin 29.0 pg (27.0-31.2); Mean Corpuscular Volume 92.8 fl (81-99); Nucleated Red Blood Cells % 0.8 %; Platelet Count 145 K/mm3 (142-424); Red Blood Count 3.34 M/mm3 (4.20-5.40); Red Cell Distribution Width-SD 54.1 fL; White Blood Count 5.2 K/mm3 (4.8-10.8)
[2024-12-13 07:48] LABS: Hemoglobin 10.0 g/dL (12.2-16.2)
[2024-12-13 08:06] LABS: Chloride 114 mmol/L (98-107); Potassium 3.9 mmoL/L (3.5-5.1); Sodium 148 mmol/L (136-145)
[2024-12-13 08:09] LABS: Anion Gap 11.9 mEq/L (5-15); Blood Urea Nitrogen 31 mg/dl (7-17); Carbon Dioxide 26 mmol/L (22.0-30.0); Creatinine Clearance Estimated 45 mL/min (50-200); Creatinine,Serum 1.40 mg/dl (0.52-1.04); Estimated Glomerular Filt Rate 38 ml/min (>60); GFR (African American) 46 ML/MIN (>60)
[2024-12-13 08:10] LABS: Calcium 9.2 mg/dl (8.4-10.2); Glucose 83 mg/dl (74-100)
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
[2024-12-13] MEDS: DIVALPROEX 500MG (Delayed-Release) TABLET 500 MG PO ×2 (09:35→21:49)
[2024-12-13] MEDS: PANTOPRAZOLE 40MG VIAL 40 MG IV ×2 (09:35→21:52)
[2024-12-13] MEDS: SODIUM CHLORIDE 0.9% 10ML VIAL 10 ML IV ×2 (09:35→21:52)
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
--- NOTE | 2024-12-13 13:20 | P.CONPHA_ITS ---
Pharmacy Intervention Comments: MEDICATION RECONCILIATION COMPLETED ON PATIENT USING MAR FROM [facility]. -ENOCH JARAMILLO, AROLDOD
--- NOTE | 2024-12-13 13:20 | HMH.PHAINT1 ---
Pharmacy Intervention Comments: MEDICATION RECONCILIATION COMPLETED ON PATIENT USING MAR FROM [facility]. -ENOCH JARAMILLO, AROLDOD
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
--- NOTE | 2024-12-13 18:34 | PC.NURSE ---
pt is alert to self only. pt pulled her IV out of her left arm so we started a new one in her right forearm. she has NaCl running at 50mL/hr and is getting IV antibiotics for her UTI. she has an indwelling shoemaker. pt has no needs at this time. safety measures are in place. call light is within reach.
[2024-12-13 19:47] LABS: Chloride 113 mmol/L (98-107)
[2024-12-13 19:48] LABS: Potassium 4.1 mmoL/L (3.5-5.1); Sodium 146 mmol/L (136-145)
[2024-12-13 19:51] LABS: Anion Gap 12.1 mEq/L (5-15); Blood Urea Nitrogen 28 mg/dl (7-17); Calcium 8.9 mg/dl (8.4-10.2); Carbon Dioxide 25 mmol/L (22.0-30.0); Creatinine Clearance Estimated 42 mL/min (50-200); Creatinine,Serum 1.50 mg/dl (0.52-1.04); Estimated Glomerular Filt Rate 35 ml/min (>60); GFR (African American) 43 ML/MIN (>60); Glucose 133 mg/dl (74-100)
--- OUTSIDE RECORDS SUMMARY | 2024-12-13 20:20 | XMS_ITS | Clinical Summary ---
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 Role Phone Unavailable Primary Care [...] 11/12/2013 UKY-Zoster Vaccines (1 of 2) 11/12/2013 [id number] Vaccine (1 - season) 2024 UKY-Influenza Vaccine [...] Narrative SUNQUEST - 02/02/1997 12:00 AM EST [facility] MR #: [id number] [facility] [place] [address] 1965 (Age: 31) FW Collect Date: 01/28/1997 00:00 Receipt Date: 01/29/1997 00:00 Page 1 DEPARTMENT OF PATHOLOGY AND LABORATORY MEDICINE CYTOPATHOLOGY REPORT Email: [email or web address] [phone] * Converted Case * This report may [...] ICD: F: {Not Entered} SNOMED CODES: 1; [id number] A resident has participated in this service. [...]
--- OUTSIDE RECORDS SUMMARY | 2024-12-13 20:20 | XMS_ITS | Clinical Summary ---
Author Organization [facility] Address [address] 

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
--- OUTSIDE RECORDS SUMMARY | 2024-12-13 20:20 | XMS_ITS | Clinical Summary ---
Author Organization [facility] ystem Address [address] [place] [address] Care Team Providers Care Lightout Examiner Name Role Phone Unavailable Primary Care Provider [...]
[2024-12-13] MEDS: DOCUSATE SODIUM 100 MG CAPSULE PO (21:50)
[2024-12-13] MEDS: PATIENT'S OWN HOME MEDICATION (Mirtazapine 7.5 mg tablet) 7.5 EACH PO (21:51)
[2024-12-13] MEDS: D5W/0.45% NaCl w/20mEq KCL 1,000 ML 100 ML IV (21:52)
[2024-12-14] VITALS (7 sets, daily range): BP systolic 97–139; BP diastolic 55–74; PULSE 58–64; RESP 14–18; TEMP 36.9–37; O2SAT 94–97; BMI 25.9
[2024-12-14] MEDS: PIPERACILLIN/TAZO 3.375 GM in 0.9 % SODIUM CHLORIDE 50 ML IV ×4 (04:28→23:23)
[2024-12-14 06:15] LABS: Hematocrit 27.3 % (37.0-47.0); Immature Granulocytes % 0.5 %; Mean Corpuscular HGB Conc 31.1 g/dL (31.8-35.4); Mean Corpuscular Hemoglobin 29.2 pg (27.0-31.2); Mean Corpuscular Volume 93.8 fl (81-99); Nucleated Red Blood Cells % 0.7 %; Platelet Count 128 K/mm3 (142-424); Red Blood Count 2.91 M/mm3 (4.20-5.40); Red Cell Distribution Width-SD 56.1 fL; White Blood Count 5.8 K/mm3 (4.8-10.8)
[2024-12-14 06:26] LABS: Hemoglobin 8.6 g/dL (12.2-16.2)
--- NOTE | 2024-12-14 07:15 | PC.NURSE ---
PT from [place], Pt is alert to self and , Pt has a Haynes, Pt has a bed alarm. Iv [place] D 1/2 NS with 20 meq of K at 100. Pt does know how to use the call light. She was hungry in the night ate some jello and pudding, Fed her self. Pt is very Pleasant lady. LEO JEAN RN
[2024-12-14] MEDS: VANCOMYCIN HCL 1,000 MG in 0.9 % SODIUM CHLORIDE 250 ML 125 MG IV (07:32)
[2024-12-14 07:49] LABS: Albumin Level 3.0 g/dl (3.5-5.0)
[2024-12-14 07:50] LABS: Chloride 113 mmol/L (98-107); Potassium 4.3 mmoL/L (3.5-5.1); Sodium 144 mmol/L (136-145)
[2024-12-14 07:52] LABS: Alanine Aminotransferase 10 U/L (12-78); Aspartate Amino Transferase 33 U/L (14-36); Blood Urea Nitrogen 24 mg/dl (7-17); Creatinine Clearance Estimated 47 mL/min (50-200); Creatinine,Serum 1.40 mg/dl (0.52-1.04); Estimated Glomerular Filt Rate 38 ml/min (>60); GFR (African American) 46 ML/MIN (>60)
[2024-12-14 07:53] LABS: Albumin/Globulin Ratio 0.8 (1.1-1.8); Alkaline Phosphatase 59 U/L (38-126); Anion Gap 10.3 mEq/L (5-15); Bilirubin,Total 0.2 mg/dl (0.2-1.3); Calcium 8.5 mg/dl (8.4-10.2); Carbon Dioxide 25 mmol/L (22.0-30.0); Globulin 3.7 g/dL (1.3-3.2); Glucose 106 mg/dl (74-100); Magnesium 1.7 mg/dl (1.6-2.3); Total Protein,Serum 6.7 g/dl (6.3-8.2)
[2024-12-14] MEDS: SODIUM CHLORIDE 0.9% 10ML VIAL 10 ML IV ×2 (09:11→20:10)
[2024-12-14] MEDS: PANTOPRAZOLE 40MG VIAL 40 MG IV ×2 (09:11→20:09)
[2024-12-14] MEDS: DOCUSATE SODIUM 100 MG CAPSULE PO ×2 (09:12→20:10)
[2024-12-14] MEDS: LEVOTHYROXINE 75MCG (0.075MG) TAB 75 MCG PO (09:12)
[2024-12-14] MEDS: DIVALPROEX 500MG (Delayed-Release) TABLET 500 MG PO ×2 (09:12→20:10)
[2024-12-14] MEDS: MAGNESIUM SULFATE IN WATER 2 GM/50 ML PIGGYBACK IV (09:57)
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
[2024-12-14] MEDS: MIRTAZAPINE 15 MG TABLET 7.5 MG PO (20:10)
--- NOTE | 2024-12-15 03:51 | PC.NURSE ---
Pt. is alert to name, , and knows she is in the hospital. Pt. has been able to answer questions slowly and appropriately She sometimes struggles for words but able to communicate enough to understand her needs. . Pt. is very cooperative and pleasant. Pt. has history of previous stroke and old TBI . Right side of the body is flaccid. Pt. needs help to turn and reposition. Pt. has a shoemaker cath in place that is draining cloudy yellow urine with a lot of sediment and purulent drainage at times. Pt. able to feed herself when she is set up to do so. . Pt. getting IV antibiotics. Pt. has slept well this shift. Pt. denies any pain. Pt. is able to use the call dempsey and change the TV channels. Personal items and call dempsey in reach. Bed in low and locked position. safety measures in place.
[2024-12-15 04:00] VITALS: BP 111/72; PULSE 61; RESP 16; TEMP 36.6; O2SAT 95; BMI 26.2
[2024-12-15] MEDS: PIPERACILLIN/TAZO 3.375 GM in 0.9 % SODIUM CHLORIDE 50 ML IV (04:59)
[2024-12-15] MEDS: VANCOMYCIN HCL 1,000 MG in 0.9 % SODIUM CHLORIDE 250 ML 125 MG IV (06:00)
[2024-12-15 06:17] LABS: Hematocrit 29.6 % (37.0-47.0); Hemoglobin 9.4 g/dL (12.2-16.2); Immature Granulocytes % 0.5 %; Mean Corpuscular HGB Conc 31.8 g/dL (31.8-35.4); Mean Corpuscular Hemoglobin 29.6 pg (27.0-31.2); Mean Corpuscular Volume 93.1 fl (81-99); Nucleated Red Blood Cells % 0.5 %; Platelet Count 145 K/mm3 (142-424); Red Blood Count 3.18 M/mm3 (4.20-5.40); Red Cell Distribution Width-SD 55.8 fL; White Blood Count 6.2 K/mm3 (4.8-10.8)
[2024-12-15 07:09] VITALS: BP 122/59; PULSE 62; RESP 18; TEMP 37.3; O2SAT 94
[2024-12-15 07:13] LABS: Magnesium 2.1 mg/dl (1.6-2.3)
[2024-12-15 07:24] LABS: Albumin Level 3.0 g/dl (3.5-5.0); Chloride 112 mmol/L (98-107); Potassium 5.0 mmoL/L (3.5-5.1); Sodium 143 mmol/L (136-145)
[2024-12-15 07:26] LABS: Blood Urea Nitrogen 21 mg/dl (7-17); Creatinine Clearance Estimated 48 mL/min (50-200); Creatinine,Serum 1.40 mg/dl (0.52-1.04); Estimated Glomerular Filt Rate 38 ml/min (>60); GFR (African American) 46 ML/MIN (>60)
[2024-12-15 07:27] LABS: Alanine Aminotransferase 10 U/L (12-78); Albumin/Globulin Ratio 0.8 (1.1-1.8); Alkaline Phosphatase 63 U/L (38-126); Anion Gap 13.0 mEq/L (5-15); Aspartate Amino Transferase 39 U/L (14-36); Bilirubin,Total 0.4 mg/dl (0.2-1.3); Calcium 8.5 mg/dl (8.4-10.2); Carbon Dioxide 23 mmol/L (22.0-30.0); Globulin 3.9 g/dL (1.3-3.2); Glucose 74 mg/dl (74-100); Total Protein,Serum 6.9 g/dl (6.3-8.2)
--- NOTE | 2024-12-15 08:55 | XR_ITS ---
FINAL REPORT CLINICAL HISTORY: Confirm PICC line placement FINDINGS: A portable view of the chest is obtained. There is no prior exam for comparison. A left-sided PICC line is present with the tip at the cavoatrial junction. Tubing along the right neck and chest is presumed [employer] shunt tubing. The heart is normal in size. Left basilar opacity is likely atelectasis. The lungs are otherwise clear. There may be a small left pleural effusion. There is no pneumothorax. IMPRESSION: Left PICC line tip at the cavoatrial junction. Left basilar opacity, likely atelectasis, and possible small left pleural effusion. Reviewed, Interpreted and Dictated by Valarie Victor MD Transcribed by Kira Marcos Authenticated and [facility]
[2024-12-15] MEDS: LEVOTHYROXINE 75MCG (0.075MG) TAB 75 MCG PO (09:03)
[2024-12-15] MEDS: PANTOPRAZOLE 40MG TABLET 40 MG PO (09:03)
[2024-12-15] MEDS: DOCUSATE SODIUM 100 MG CAPSULE PO (09:03)
[2024-12-15] MEDS: DIVALPROEX 500MG (Delayed-Release) TABLET 500 MG PO (09:03)
[2024-12-15] MEDS: CEFTRIAXONE 1 GM 1 GM in 0.9 % SODIUM CHLORIDE 50 ML IV (09:08)
--- NOTE | 2024-12-15 09:08 | HMH.PHAAMS2 ---
- Antimicrobial Stewardship Review de-escalation Stewardship interventions: discontinue antimicrobial (stopped vancomycin), de-escalation (vacnomycin and zosyn discontinued, rocephin started per Enrique SWAN)
--- NOTE | 2024-12-15 09:11 | HMH.OTEV ---
OT Evaluation Rehab OT IP Evaluation Start: 12/13/24 01:12 Freq: ONCE Status: Active Protocol: Document 12/15/24 09:00 SITA (Rec: 12/15/24 09:11 SITA [email or web address]) Rehab OT IP Assessment Subjective History Patient is a 59-year-old female from [facility] facility who presents to the hospital due to change in mental status. At time of my evaluation patient appears confused, patient only answers yes or to questions. Reportedly patient has been feeling sick for past few days. On further evaluation patient's urine was noticed to have gallbladder wall thickening on CT abdomen pelvis as well as UA suggestive for UTI. Patient is a resident at [facility] for the past 20 years. Able to transfer with stand pivot with CGA/SBA PLOF. Patient is able to drsg herself with SBA to s/u. Incontinent with bladder mgt tr. Uses w/c to propel self in facility. Subjective Yeah. Instructed Patient on proper hand and foot placement to complete bed mobility from supine->sit @ EOB requiring Max A. Patient required consistent verbal cueing due to poor attention to task to complete bed mobility. Tv was turned off to improve patient's participation with task for safety. After extended time, Patient completed SPT from EOB->recliner with Max A x2. Turned patient's tv back on with needs met and call light in place. Objective Patient Orientation Person,Name,Age Right Upper Unable to move Extremity Gross ROM Left Upper Extremity WFL Gross ROM Bed Mobility bed mobility - supine/sit Assist Level Maximum x 1 (75% assist) Transfer Training Sit/Stand/Pivot Transfer Assist Level Maximum x 2 (75% assist) Chair Transfer Maximum x 2 (75% assist) Ability Chair Transfer Sit to/from Ambulatory Technique Chair Transfer Small Base Quad Cane Assistive Devices Feeding Ability Independent Lower Body Dressing Unable/dependent Ability Upper Body Dressing Maximum Assistance Ability Rehab OT IP prob,goals,plan Problems Date of Evaluation: 12/15/24 OT IP Problems Bed Mobility,Transfers,Balance,Self care,Safety Rehab Potential Rehab Potential Good Equipment Needs Assistive Devices None / NA Plan OT intervention Plan Bed Mobility,Transfers,Balance,Self care,Safety, Therapeutic Exercise OT Plan Frequency Daily Duration LOS Discharge Goals Bed Mobility Ability Assistance x1 Sit to Stand Chair Moderate x 2 (50% assist) Transfer Ability Chair Transfer Moderate x 2 (50% assist) Ability Chair Transfer Sit to/from Ambulatory Technique Chair Transfer None Assistive Devices Discharge Plan OT Discharge Plan Recommend patient to continue skilled OT IP services while here at [facility] d/c to return back to [facility]. Patient would benefit from OT IP services with focus on improving safety awareness to complete fx'l mobility and ADLs in order to return back to prior level of function. Eval Complexity Eval Charge Codes 69551 - Low Complexity PHYSICIAN CERTIFICATION: I certify the specified therapy services for Preeti Mueller are required, authorized, and reviewed every 30 days.
--- NOTE | 2024-12-15 09:45 | HMH.PHAAMS2 ---
- Antimicrobial Stewardship Review de-escalation Stewardship interventions: culture & sensitivity review, therapy
--- OUTSIDE RECORDS SUMMARY | 2024-12-15 11:36 | XMS_ITS | Clinical Summary ---
Author Organization [facility] Address [address] [place] [address] Care Team Providers Care Content Engineer Name Role Phone Unavailable Primary Care [...]
--- OUTSIDE RECORDS SUMMARY | 2024-12-15 11:36 | XMS_ITS | Clinical Summary ---
Author Organization [facility] Address [address] [place] [address] Phone Care Team Providers Care Broadloom Weaver Name Role Phone Unavailable Primary Care Provider [...] patient's age to complete this topic Insurance [facility] [address] [id number] [place] [address] MEDICAID [place] [facility] [address] [id number] MEDICARE [place] PART A AND B MEDICAID [place] Advance Directives For more information, please contact: [phone] * Full Code (Latest Code Status on File) Date Activated Date Inactivated Comments 09/14/2014 1:40 PM 09/14/2014 6:39 PM
--- OUTSIDE RECORDS SUMMARY | 2024-12-15 11:36 | XMS_ITS | Clinical Summary ---
Author Organization Healthcare Address [address] [place] [address] Care Team Providers Care Cane Feeder Name Role Phone Unavailable Primary Care Provider [...] 11/12/2013 [facility]-Zoster Vaccines (1 of 2) 11/12/2013 [id number] Vaccine (1 - season) 2024 [facility]-Influenza Vaccine [...] Narrative SUNQUEST - 02/02/1997 12:00 AM EST [facility] MR #: [id number] [facility] [place], [place] [address] 1965 (Age: 31) FW Collect Date: 01/28/1997 00:00 Receipt Date: 01/29/1997 00:00 Page 1 DEPARTMENT OF PATHOLOGY AND LABORATORY MEDICINE CYTOPATHOLOGY REPORT Email: [email or web address] [phone] * Converted Case * This report may [...] ICD: F: {Not Entered} SNOMED CODES: 1; [id number] A resident has participated in this service. [...]
--- NOTE | 2024-12-15 11:39 | CARE MANAGER ---
Patient resides at [facility], [facility] level of care. She is planned for discharge back to facility today, SNF level of care r/t need for IV antibiotics.
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
--- NOTE | 2024-12-15 11:57 | P.PCN_ITS ---
<Statement entered by Lazarus Nunez MD - 12/15/24 16:14> Rounded on patient after nurse practitioner. Personally examined and interviewed patient. Agree with exam findings and care plan as documented. [facility] Procedure Note Date: 12/15/24 Time: 11:10 Procedure Note:: PICC line insertion Time: 1110?1145 Consent was obtained from patient. Lab work was reviewed platelet count was 145. Discussed risk with patient's including but not limited to bleeding, nerve damage, pain, infection. Left arm was placed on table, prepped and draped in sterile fashion. Under ultrasound guidance, needle was placed into the left brachial vein. A guidewire was then threaded through the vein and advanced without difficulty. Introducer was then placed over the guidewire and guidewire was removed. PICC line catheter was measured and trimmed to appropriate length of 48 cm, 0 catheter exposed. 5 [place] dual-lumen PICC catheter was then threaded through introducer without difficulty. PICC line was flushed with 45 mL of normal saline without resistance. Blood return noted. Introducer was removed, PICC was secured with StatLock, algidex patch, and sterile transparent dressing. Chest x-ray was obtained for PICC placement. PICC line tip terminated in the cavoatrial junction. Patient tolerated the procedure nicely and was educated on CLABSI, dressing care, PICC line use, infection risk. Blood Loss: <10 cc Power PICC Solo catheter REF?[id number] LOT?[id number] EXP?[id number]
== END 2024-12-15 15:00 | DRG 871 ==
LOC: ER 21:40 → 2ND 12-13 00:32
PROVIDERS: Internal Medicine; Admitting Provider Internal Medicine Adolescent Medicine; Emergency Provider Student in an Organized Health Care Education/Training Program; Visit Provider Internal Medicine Adolescent Medicine
DX: A41.9 Sepsis, unspecified organism (principal); G93.41 Metabolic encephalopathy; N12 Tubulo-interstitial nephritis, not specified as acute or chronic; E87.0 Hyperosmolality and hypernatremia; N17.9 Acute kidney failure, unspecified; T68.XXXA Hypothermia, initial encounter; N20.0 Calculus of kidney; E86.1 Hypovolemia; G40.909 Epilepsy, unspecified, not intractable, without status epilepticus; E03.9 Hypothyroidism, unspecified; N18.30 Chronic kidney disease, stage 3 unspecified; K80.20 Calculus of gallbladder without cholecystitis without obstruction; R19.5 Other fecal abnormalities; Z87.820 Personal history of traumatic brain injury; Z98.890 Other specified postprocedural states; Z86.61 Personal history of infections of the central nervous system; Z79.890 Hormone replacement therapy; Z79.899 Other long term (current) drug therapy
CPT/HCPCS: 36415; 51702; 71045; 74174; 80048; 80053; 81001; 82272; 83605; 83690; 83735; 85025; 87040; 87086; 97163; 97165; 97530; 99285; C1751; G0328; J0696; J2470; J2543; J3373; J3375; J3475; J3480; J7030; J7050; J7120; Q9967